=== PATIENT | male | born 1980 | race Caucasian/White ===

== ENCOUNTER 2023-09-22 16:35 | Emergency (ER) | payer OTHER, SELFPAY ==
--- NOTE | ~2023-09-22 | US_ITS ---
EXAMINATION: US VENOUS WITH DOPPLER UPPER EXTREMITY, RIGHT CLINICAL INFORMATION: Right arm axillary pain question DVT COMPARISON: None available. TECHNIQUE: Ultrasound of the upper extremity is performed using compression sonography and color and pulse Doppler flow with assessment of augmentation of flow. There is also imaging and Doppler assessment of the jugular and subclavian veins. Spectral analysis with color-flow imaging is performed. FINDINGS: Respiratory variation, normal compression, and augmented flow are noted throughout the upper extremity including the axillary, brachial, cubital, and radial and ulnar veins. Duplicated brachial system. There is normal flow in the internal jugular and subclavian veins. There is no visible deep or superficial thrombophlebitis. If the patient's symptoms progress, a followup ultrasound in 5 -7 days might be of value to exclude proximal propagation from a nonvisualized distal arm vein. US/US venous duplex UE RT IMPRESSION: No DVT demonstrated in the right upper extremity
--- NOTE | ~2023-09-22 | CT_ITS ---
EXAMINATION: CT CERVICAL SPINE WITHOUT CONTRAST CLINICAL INFORMATION: Pain. COMPARISON: None TECHNIQUE: Contiguous axial imaging was performed of the cervical spine without intravenous administration of contrast. Coronal and sagittal reformats were obtained at the acquisition workstation. This CT examination was performed using dose optimization techniques as appropriate, variously including the following: *Automated exposure control *Adjustment of mA and/or kV according to patient size (this includes techniques or standardized protocols for targeted exams where dose is matched to indication/reason for exam; i.e. extremities or head) *Use of iterative reconstruction technique DLP: 632 mGy-cm FINDINGS: The atlantooccipital and atlantoaxial articulations remain well aligned. Straightening of the normal cervical lordosis. Otherwise, there is anatomic alignment of the vertebral bodies and posterior elements. No evidence of acute fracture or subluxation. Moderate to severe intervertebral disc height loss at C5-C6 with associated endplate sclerosis and osteophytes leading to mild to moderate central spinal canal stenosis. Mild multilevel uncovertebral hypertrophy. There is no prevertebral soft tissue swelling. The thyroid gland and remaining cervical soft tissues are normal in appearance. The lung apices demonstrate no abnormalities. CT/CT cervical spine wo IV con IMPRESSION: 1. No acute cervical spine fracture or subluxation. 2. Moderate to severe intervertebral disc height loss at C5-C6 with associated osteophytes leading to mild to moderate central spinal canal stenosis.
[2023-09-22 16:48] VITALS: BP 132/87; PULSE 98; RESP 18; TEMP 36.8; O2SAT 95; BMI 38.7
--- NOTE | 2023-09-22 16:59 | ED.EXTPRO ---
HPI - Extremity Problem General Chief complaint: Extremity Injury, Upper Stated complaint: Pain right arm Time Seen by Provider: 09/22/23 18:29 Source: patient Mode of arrival: ambulatory Limitations: no limitations History of Present Illness HPI Narrative: 43 year old male presents for pain in the right aspect of his neck and axilla which shoots down into his arm. He states this pain began 4-5 days ago with no known injury. He states the pain is on and off. He states sometimes when he is lying down he does not feel the pain. He tries to move the pain worsens. He occasionally feels a numbness/burning pain radiating to his right upper arm. 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 He reports he has a family history of blood clots/DVTs Related Data Previous Rx's Medication Instructions Recorded cyclobenzaprine 10 mg tablet 10 mg PO TID PRN muscle spasm #15 09/22/23 tabs dexamethasone 4 mg tablet 4 mg PO BID #6 tabs 09/22/23 Allergies Allergy/AdvReac Type Severity Reaction Status Date / Time No Known Allergies Allergy Verified 09/22/23 16:48 [No Known Allergies*] Review of Systems Constitutional: Constitutional: Denies fever(s) and Denies headache(s) ENT: Denies headache(s) and Reports neck pain Cardiovascular: Cardiovascular: Denies chest pain and Denies dyspnea Respiratory: Respiratory: Denies dyspnea Gastrointestinal: Gastrointestinal: Denies abdominal pain Musculoskeletal: Musculoskeletal: Reports back pain, Reports neck pain, Reports numbness, Reports radiating pain into limb and Reports tingling Neurologic: Denies headache(s), Reports numbness and Reports tingling PMFSH Social History Social History Advance Directives: No Advance Directives Information Provided: No Physical Exam Vital Signs: Vital Signs: Last Vital Signs Temp 98.3 F 09/22/23 16:48 Pulse 98 09/22/23 16:48 Resp 18 09/22/23 16:48 BP 132/87 09/22/23 16:48 Pulse Ox 95 09/22/23 16:48 O2 Del Method Room Air 09/22/23 16:48 BMI result Body Mass Index 38.7 Const: General: healthy appearing, comfortable, no acute distress, alert and awake Nutritional Appearance: well nourished Orientation/consciousness: patient oriented x3 HEENT: Head: Yes normocephalic and Yes atraumatic Eyes: Eyelids: Yes eyelids normal Conjunctivae: conjunctivae normal Sclerae: sclerae normal Corneas: corneas normal Pupils: Equal, round and reactive pupils present EOM: EOMs intact bilaterally Neck: Neck: Yes full ROM Resp: Effort & Inspection: normal respiratory effort, able to speak in complete sentences and not labored Back/Spine/Pelvis: Other: Patient has tenderness to the right cervical paraspinous region as well as right trapezius muscle group. No palpable deformity. No C-spine tenderness. He has full range of motion of the right shoulder without deformity. 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 General: patient oriented x3 Cranial nerves: Yes Equal, round and reactive pupils present and Yes Bilaterally intact EOM present Cognition (Neuro): normal cognition Course Course Course Narrative: RME: 43 yold male presents to the ED for right axilla pain with right arm pain. patient also states posteirio neck pain. patient states no right arm sweling. Phyiscal exam positive for significant right axilla tenderness on palpation without any mass, redness, fluctulance, or crepitus. US dopper of right arm, cT of neck. Medications Administered Discontinued Medications Generic Name Dose Route Start Last Admin Trade Name Freq PRN Reason Stop Dose Admin Dexamethasone 4 mg 09/22/23 19:09 09/22/23 19:30 Dexamethasone 4 Mg Tablet PO 09/22/23 19:10 4 mg ONCE ONE Administration Medical Decision Making Medical Decision Making [facility] Narrative: 43-year-old male presents for evaluation of right-sided neck pain radiating to his right arm. His CT scan shows C5/C6 [id number] central canal stenosis which is likely contributing to cervical radiculopathy. Patient has been established with Neurosurgery in the past due to lumbar issues and was struck to follow-up with them. He was also instructed to follow-up with his PCP. Will treat symptomatically with dexamethasone and cyclobenzaprine. Differential Diagnosis Differential Diagnoses: The differential diagnosis associated with the presentation includes Cervical strain Cervical radiculopathy Right upper extremity DVT Muscle spasm Independent Interpretation I performed an independent interpretation of an: CT Scan (No obvious C-spine fracture) Radiology Impression Discussion of test interpretation with radiology: I have reviewed the radiologist's reading. (Mild to moderate central canal stenosis at the C5-C6 level.) Radiologist Impression: No evidence of DVT to the right upper extremity Discharge Plan Discharge Clinical Impression: Cervical radiculopathy, acute Patient Disposition: Home, Self-Care Instructions: Cervical Radiculopathy (ED) Additional Instructions: Your ultrasound showed no evidence of blood clots. Your CT scan showed narrowing of the disc space at C5/C6 This is likely causing a pinched nerve explaining your symptoms Take dexamethasone twice daily for the next 3 days Use ibuprofen/Tylenol for pain You may also use cyclobenzaprine as needed for muscle spasms This may make you sleepy, did not drink alcohol or drive after taking Follow-up with your primary doctor Prescriptions: New dexamethasone 4 mg tablet 4 mg PO BID Qty: 6 0RF cyclobenzaprine 10 mg tablet 10 mg PO TID PRN (Reason: muscle spasm) Qty: 15 0RF
--- OUTSIDE RECORDS SUMMARY | 2023-09-22 17:59 | XMS_ITS | Continuity of Care Document ---
Author Name Unknown Organization [facility] ter Address [address] [place] [id number] Care Team Providers [employer] Name Role Phone Micaela Pena MD Primary Care Physician Encounter [facility] NBR [id number] Date(s): 05/13/22 - 05/14/[address] [address]- Discharge Disposition: A-D/C Home Attending Physician: Jose Hough MD Admitting Physician: Jose Hough MD Referring Physician: Jose Hough MD Allergies, Adverse Reactions, Alerts No Known Allergies Medications acetaminophen-oxyCODONE 325 mg-5 mg oral tablet 2, tablet, By Mouth, Every 4 hours, PRN, # 30 tablet, Refills 0, Tot. Refills 0, Acute, Pain , Moderate, 05/20/22 16:15:00 EDT, 05/13/22 16:15:00 EDT, Route to Pharmacy Electronically, [facility], Partial fill upon patient request... Start Date: 05/13/22 Stop Date: 05/20/22 Status: Ordered Percocet-5/325 325 mg-5 mg oral tablet 2 tablet, Tablet, By Mouth, Every 4 hours, May take less, PRN for Pain , Moderate, Routine, 05/13/22 16:43:00 EDT Start Date: 05/13/22 Stop Date: 05/14/22 Status: Discontinued Problem List Condition Effective Dates Status Health Status Inform ant Obese class II(Confirmed) Active Procedures Procedure Date Related Diagnosis Body Site Status Laminotomy (hemilaminectomy) , with decompression of nerve root(s), including partial facetectomy, foraminotomy and/or excision of herniated intervertebral disc; 1 interspace, lumbar Completed Results Radiology Reports * Exam Date Time Procedure Performing Provider Status 05/13/22 5:32 PM Spine Single View Noel Myles; Auth ( Verified) Notes: (Spine Single View) Reason For Exam: RT Lumbar 4-5 Radiculitis RESULT: Spine Single View Spine Single View INDICATION/CLINICAL QUESTION: Reason: RT Lumbar 4-5 Radiculitis COMPARISON: None. FINDINGS: Single intraoperative lateral view of the lumbar spine with surgical instruments overlying the posterior elements at L4. Radiologist was not in attendance. Please see operative report for further details. IMPRESSION: See above. WSN: [id number] Ordering Physician: Jose Hough Dictated By: Bobby Loving MD Dictated Date/Time: 05/13/22 6:16 pm Reviewed By: Bobby Loving MD Signed By: Bobby Loving MD Signed Date/Time: 05/13/22 6:16 pm Transcribed By: RISA Transcribed Date/Time: 05/13/22 6:15 pm Vital Signs Most recent to oldest [Reference Range]: 1 2 3 Height 165 cm (05/14/22 8:33 AM) 165 cm (05/13/22 9:13 PM) 165 cm (05/13/22 2:27 PM) Weight 99.8 kg (05/13/22 2:27 PM) 99.8 kg (05/11/22 2:34 PM) Oxygen Saturation [94-100 %] 96 % (05/14/22 8:33 AM) 95 % (05/14/22 2:54 AM) 95 % (05/13/22 11:00 PM) Pulse Rate [55-90 bpm] 85 bpm (05/14/22 8:33 AM) 86 bpm (05/14/22 2:54 AM) 85 bpm (05/13/22 11:00 PM) Body Mass Index [18.5-24.99] 36.66 *>HHI* (05/13/22 2:27 PM) 36.66 *>HHI* (05/11/22 2:34 PM) Blood Pressure [90-138/55-84 mm Hg] 114/72mm Hg (05/14/22 8:33 AM) 104/73mm Hg (05/14/22 2:54 AM) 108/69mm Hg (05/13/22 11:00 PM) Respiratory Rate [16-30 br/min] 16 br/min (05/14/22 9:26 AM) 20 br/min (05/14/22 8:33 AM) 16 br/min (05/14/22 6:05 AM) Temperature [96.8-100.4 DegF] 98.2 DegF (05/14/22 8:33 AM) 98.2 DegF (05/14/22 2:54 AM) 98.2 DegF (05/13/22 11:00 PM) Liters per Minute 2 L/min (05/13/22 9:13 PM) 2 L/min (05/13/22 8:30 PM) 2 L/min (05/13/22 8:15 PM) Mode of Delivery (Oxygen) Room air (05/14/22 8:33 AM) Room air (05/14/22 2:54 AM) Nasal cannula (05/13/22 11:00 PM) Blood pressure sites Arm, left (05/14/22 8:33 AM) Arm, left (05/14/22 2:54 AM) Arm, left (05/13/22 11:00 PM) Temperature Route Oral (05/14/22 8:33 AM) Oral (05/14/22 2:54 AM) Oral (05/13/22 11:00 PM) Dry Weight 102.9 kg (05/13/22 2:27 PM) 99.8 kg (05/11/22 2:34 PM) Weight Obtained Via Patient/family state d (05/11/22 2:34 PM) Dry Weight Obtained Via Standing scale (05/13/22 2:27 PM) Patient/family stated (05/11/22 2:34 PM)
[2023-09-22] MEDS: dexAMETHasone 4 MG TABLET PO (19:30)
== END 2023-09-22 19:40 | disposition home or self-care (01) ==
PROVIDERS: Emergency Provider Student in an Organized Health Care Education/Training Program; PCP Pediatrics
DX: M54.12 Radiculopathy, cervical region (principal); M79.601 Pain in right arm
CPT/HCPCS: 72125; 93971; 99282; 99284; J8540

== ENCOUNTER 2023-09-27 11:57 | Outpatient (REF) | payer OTHER, SELFPAY ==
[2023-09-27 15:07] LABS: Appearance Urine Clear; Color Urine Yellow; Glucose Urine UA >=1000 mg/dL (Negative); Leukocyte Esterase Urine Negative (Negative); Nitrite Urine Negative (Negative); Specific Gravity - Urine >= 1.030 (1.005-1.025); UMIC TRIGGER UA YES; Urine Blood Negative (Negative); Urine Ketones Negative (Negative); Urine Protein Negative (Neg-Trace)
[2023-09-27 15:10] LABS: Bacteria Urine None Seen (None Seen); Hyaline Casts Urine 0-2 /LPF (0-2); RBC Urine 0-2 /HPF (0-2); Squamous Epithelial Cell Urine 0-2 /HPF (0-2); WBC Urine 0-5 /HPF (0-5)
[2023-09-27 15:10] LABS: Anion Gap 12 (12-20); Blood Urea Nitrogen 19 mg/dL (9-16); Calcium 9.2 mg/dL (8.4-10.2); Carbon Dioxide 27 mmol/L (22-29); Chloride 99 mmol/L (96-108); Estimated Glomerular Filt Rate > 60; Glucose Random 322 mg/dL (60-115); Sodium 134 mmol/L (135-145)
[2023-09-27 15:25] LABS: Estimated Average Glucose 169 mg/dL; Hemoglobin A1c % 7.5 % (<6.0)
== END 2023-09-27 11:58 | disposition home or self-care (01) ==
LOC: HO.CHCLDS 11:57
PROVIDERS: Visit Provider Pediatrics
DX: E11.69 Type 2 diabetes mellitus with other specified complication (principal); E66.9 Obesity, unspecified
CPT/HCPCS: 36415; 80048; 81001; 83036

== ENCOUNTER 2023-10-11 11:44 | Outpatient (AMB) | payer OTHER, SELFPAY ==
--- NOTE | 2023-10-11 11:47 | A.OFFVIS_ITS ---
Intake Vital Signs 10/11/23 11:53 Height 5 ft 5 in Weight 228 lb 2 oz BMI 38.0 BP 140/92 H Blood Pressure Location Lt brachial Position Sitting Pulse 102 H Pulse Source Pulse Oximeter Pulse Oximetry (%) 98 Oxygen Delivery Method Room Air Intake Visit Reasons: CERVICAL DISC DISORDER AT C5-C6 W/RADICULOPATHY/co Intake Note: Pain today 07/24 [employer] Worker Required: No Accompanied by: Self / Same As Patient Allergies No Known Allergies [No Known Allergies*] Allergy (Verified 10/11/23 11:49) HPI CERVICAL DISC DISORDER AT C5-C6 W/RADICULOPATHY/co HPI Details Patient is a 43-year-old male presents today with acute right-sided neck and right shoulder pain. [id number]. Denies any inciting events, trauma, injury, or falls. Patient was seen at our ER on 09/22/23 and was referred to us for further evaluation for cervical radiculopathy. Cervical spine CT scan showed moderate to severe intervertebral disc height loss at C5-C6 with associated osteophytes leading to mild to moderate central spinal canal stenosis. Neck pain is easily aggravated with all movements, worse with right rotation, bending, tilting with radiation to his right periscapular area and right axilla and down to his right arm with associated occasional numbness, burning and tingling. Pain has been constant and rated at 8-9/10 at its worst intensity and 6/10 least intensity. 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 Patient reports he was prescribed Flexeril and Decadron in ER. Flexeril causes him drowsiness, constipation and dry mouth. He was not able to fill Decadron. He denies previous physical therapy, chiropractic manipulation, massage, TENS unit, acupuncture or acupressure therapy, spine surgery or injections. Patient is interested to pursue formal course of physical therapy. He has been trying to increase his neck range of motions is gentle stretching exercises and heat therapy is minimal improvement. Denies any fever, weight loss, chills, malaise, headaches, dizziness, chest pain, shortness of breath, gait imbalances, bladder or bowel dysfunction or saddle anesthesia. Location Lower neck radiates down right shoulder and axilla Duration 1 month, no inciting events Characteristics of symptom or complaint Swelling, tightness, stabbing, pinching, numbness Aggravating or associated factors Movements, ROM, stress, cold weather Relieving factors Tilting to the left, staying still, Tylenol, Ibuprofen, Flexeril Treatment Stretching exercises, heat therapy Review of Systems Const All systems reviewed & are unremarkable except as noted in HPI and below Physical Exam Vital Signs: Last Vital Signs Pulse 102 H 10/11/23 11:53 BP 140/92 H 10/11/23 11:53 Pulse Ox 98 10/11/23 11:53 Oxygen Delivery Method Room Air 10/11/23 11:53 BMI result Body Mass Index 38.0 General: Appears afebrile. Alert and oriented. Mood and affect appropriate. Follows and participates in conversation appropriately. Respiratory effort is unlabored. No cough. Able to transition from sit to stand unassisted. Ambulates with bilaterally normal heel strike and toe off. Neck Other: Patient with decreased cervical ROM in all planes/especially with right lateral rotation and bending. Reports increased pain with cervical extension and flexion. Spurling compression test equivocal. Pain is unchanged by Spurling maneuver with retraction. Elvey's tension test positive on the right, with radiation of pain from neck to wrist. Lhermitte's test was negative. DTR intact, +2 and symmetrical. Patient demonstrated 5/5 motor strength of bilateral upper extremities, slightly decreased on the right. 2 + radial pulses. Significant tightness throughout right upper trapezius as well as TTP throughout bilateral upper trapezius muscles. No paravertebral tenderness over facet joints bilaterally. No clonus. TTP to anterior and posterior aspects of right shoulder. Shoulder abduction test is negative. Tinel's negative. Positive Phalen's test on the right. Neck: Yes no lymphadenopathy, Yes trachea midline, Yes supple, No anterior neck swelling, No torticollis, Yes no JVD and Yes prominent dorsocervical fat pad Chest Chest palpation & inspection: normal inspection of the chest, no localized rib tenderness, no tenderness and No rash Back/Spine/Pelvis Cervical Spine: cervical muscular tenderness, pain with cervical ROM, No Cervical spine scars present, cervical spasm (right), No Cervical spine tenderness and No step off deformity Thoracic/Lumbar Spine: thoracic and lumbar spine normal to inspection, thoraco- lumbar ROM normal, No thoracic spinal tenderness and No lumbar spinal tenderness Extrem General: Yes capillary refill normal and Yes no clubbing, cyanosis or edema Right upper extremity: shoulder/upper arm (Pain with internal/external rotations) Details: normal to inspection, tenderness Location: of the A-C joint and over the biceps tendon, axillary nerve sensory function normal and normal ROM; no swelling, no ecchymosis, no crepitus, no deformity and no unusual warmth Results Reviewed Results Reviewed: CT CERVICAL SPINE WITHOUT CONTRAST 09/22/23 FINDINGS: The atlantooccipital and atlantoaxial articulations remain well aligned. Straightening of the normal cervical lordosis. Otherwise, there is anatomic alignment of the vertebral bodies and posterior elements. No evidence of acute fracture or subluxation. Moderate to severe intervertebral disc height loss at C5-C6 with associated endplate sclerosis and osteophytes leading to mild to moderate central spinal canal stenosis. Mild multilevel uncovertebral hypertrophy. There is no prevertebral soft tissue swelling. The thyroid gland and remaining cervical soft tissues are normal in appearance. The lung apices demonstrate no abnormalities. IMPRESSION: 1. No acute cervical spine fracture or subluxation. 2. Moderate to severe intervertebral disc height loss at C5-C6 with associated osteophytes leading to mild to moderate central spinal canal stenosis. Assessment & Plan Assessment & Plan (1) Cervical spondylosis: Code(s): M47.812 - Spondylosis without myelopathy or radiculopathy, cervical region (2) Cervical radiculopathy: Code(s): M54.12 - Radiculopathy, cervical region (3) Numbness and tingling of right upper extremity: Code(s): R20.0 - Anesthesia of skin; R20.2 - Paresthesia of skin (4) Muscle spasms of neck: Code(s): M62.838 - Other muscle spasm (5) Right shoulder pain: Code(s): M25.511 - Pain in right shoulder Plan 1. Recommend formal physical therapy for neck and shoulder pain. Script provided today. Encouraged good posture, adequate hydration, activity modifications and avoiding heavy lifting or straining neck. 2. Discussed interventional treatments for axial and radicular neck pain and right shoulder pain. Will proceed with plain films of cervical-thoracic spine and shoulder xray and EMG studies prior to any interventional treatments. 3. Scripts provided for gabapentin and methocarbamol. Side effects and precautions were discussed with patient. Questions and concerns have been answered and patient agreed with the plan. Follow up for xray/EMG results and sooner as needed. Orders: Orders NE nerve conduction velocity Today M47.812 - Spondylosis without myelopathy or radiculopathy, cervical region, M54.12 - Radiculopathy, cervical region, R20.0 - Anesthesia of skin, R20.2 - Paresthesia of skin XR shoulder RT min 2V Today M25.511 - Pain in right shoulder XR thoracic spine 2V Today M54.12 - Radiculopathy, cervical region, R20.0 - Anesthesia of skin, R20.2 - Paresthesia of skin NE electromyogram (EMG) Today M47.812 - Spondylosis without myelopathy or radiculopathy, cervical region, M54.12 - Radiculopathy, cervical region, R20.0 - Anesthesia of skin, R20.2 - Paresthesia of skin PT Evaluation and Treatment Today M47.812 - Spondylosis without myelopathy or radiculopathy, cervical region, M54.12 - Radiculopathy, cervical region, M62.838 - Other muscle spasm, R20.0 - Anesthesia of skin, R20.2 - Paresthesia of skin XR cervical spine 3V Today M47.812 - Spondylosis without myelopathy or radiculopathy, cervical region, M54.12 - Radiculopathy, cervical region Medications: New gabapentin 300 mg PO BEDTIME 30 days 30 caps 0RF pain M54.12 - Radiculopathy, cervical region methocarbamol 750 mg PO Q8H PRN 90 tabs 0RF muscle spasm M47.812 - Spondylosis without myelopathy or radiculopathy, cervical region, M54.12 - Radiculopathy, cervical region, M62.838 - Other muscle spasm Discontinued dexamethasone Discontinued Reason: Doctor's Order 4 mg PO BID 6 tabs 0RF cyclobenzaprine Discontinued Reason: Patient no longer taking 10 mg PO TID PRN 15 tabs 0RF muscle spasm Coding Level of Care Code New Pt Level 4 (07627) Diagnoses Cervical spondylosis M47.812 Cervical radiculopathy M54.12 Numbness and tingling of right upper extremity R20.0; R20.2 Muscle spasms of neck M62.838 Right shoulder pain M25.511
[2023-10-11 11:53] VITALS: BP 140/92; PULSE 102; O2SAT 98; BMI 38.0
== END 2023-10-11 12:11 | disposition home or self-care (01) ==
PROVIDERS: PCP Pediatrics; Referring Provider Pediatrics; Visit Provider Nurse Practitioner Family
DX: M47.812 Spondylosis without myelopathy or radiculopathy, cervical region (principal); M54.12 Radiculopathy, cervical region; R20.0 Anesthesia of skin; R20.2 Paresthesia of skin; M62.838 Other muscle spasm; M25.511 Pain in right shoulder
CPT/HCPCS: 99204

== ENCOUNTER → 2023-10-11 11:44 | Outpatient (BNVA) | payer OTHER, SELFPAY | PROVIDERS: PCP Pediatrics; Referring Provider Pediatrics; Visit Provider Nurse Practitioner Family | DX: M47.812 Spondylosis without myelopathy or radiculopathy, cervical region (principal); M54.12 Radiculopathy, cervical region; M62.838 Other muscle spasm; M25.511 Pain in right shoulder; R20.0 Anesthesia of skin; R20.2 Paresthesia of skin | CPT/HCPCS: 99202 ==

== ENCOUNTER 2023-10-12 16:22 | Outpatient (REF) | payer OTHER, SELFPAY ==
--- NOTE | ~2023-10-12 | XR_ITS ---
EXAMINATION: XR SHOULDER, RIGHT CLINICAL INFORMATION: Pain in right shoulder COMPARISON: None available. TECHNIQUE: AP external rotation, Grashey, scapular Y, and axillary views of the right shoulder. FINDINGS: The bones and soft tissues are normal. No fracture. Glenohumeral and acromioclavicular alignment is anatomic with normal joint space. No abnormal soft tissue calcifications. XR/XR shoulder RT min 2V IMPRESSION: Normal right shoulder.
--- NOTE | ~2023-10-12 | XR_ITS ---
EXAMINATION: XR THORACOLUMBAR SPINE CLINICAL INFORMATION: Radiculopathy COMPARISON: None available. TECHNIQUE: 2 views of thoracic spine FINDINGS: The vertebral alignment is normal. No intrinsic bony abnormality. The disc heights and neural foramina are well maintained. The endplates and posterior elements are normal. No fracture or subluxation. The surrounding prevertebral soft tissues are unremarkable. XR/XR thoracic spine 2V IMPRESSION: No compression fractures or subluxations are identified. The disc spaces are preserved. No endplate changes are seen. The prevertebral soft tissues are normal. The foramina are patent.
--- NOTE | ~2023-10-12 | XR_ITS ---
EXAMINATION: XR CERVICAL SPINE CLINICAL INFORMATION: Neck pain COMPARISON: CT scan from 09/22/2020 TECHNIQUE: 3 views of the cervical spine were obtained. FINDINGS: There is straightening of cervical lordosis with marginal spurring and narrowing at the level of C5-C6 and narrowing of C6-C7 intervertebral disc spaces. Pedicles are preserved. Soft tissues are unremarkable. XR/XR cervical spine 3V IMPRESSION: Degenerative changes as described
== END 2023-10-12 16:23 | disposition home or self-care (01) ==
LOC: HO.XRAY 16:22
PROVIDERS: PCP Pediatrics; Visit Provider Nurse Practitioner Family
DX: M54.12 Radiculopathy, cervical region (principal); M47.812 Spondylosis without myelopathy or radiculopathy, cervical region; M25.511 Pain in right shoulder; R20.0 Anesthesia of skin; R20.2 Paresthesia of skin
CPT/HCPCS: 72040; 72070; 73030

== ENCOUNTER 2023-11-25 10:51 | Outpatient (REF) | payer OTHER, SELFPAY ==
--- NOTE | 2023-11-25 10:53 | EMG_ITS ---
Chief complaint: New onset right neck and upper arm pain, since September 2023. And numbness on same distribution. Denies numbness in fingers. Reason for referral: Evaluate for radiculopathy Referred by: Gracie Dewitt NP Procedure done: Right upper extremity NCS/EMG Precautions and/or limitations: None The limb temperature was monitored continuously and remained between 32-36 degrees C during the performance of the NCS. Nerve Conduction Studies Anti Sensory Summary Table ?Stim Site NR Onset (ms) Norm Onset (ms) Peak (ms) Norm Peak (ms) O-P Amp (?V) Norm O-P Amp Site1 Site2 Delta-0 (ms) Dist (cm) Nick (m/s) Norm Nick (m/s) Right Median Anti Sensory (2nd Digit) Wrist ? 3.3 4.0 <3.6 31.0 >10 Wrist 2nd Digit 3.3 14.0 42 Right Radial Anti Sensory (Thumb) Forearm ? 1.4 1.9 <3.1 17.9 Forearm Thumb 1.4 0.0 Right Ulnar Anti Sensory (5th Digit) Wrist ? 2.1 2.9 <3.7 15.9 >15.0 Wrist 5th Digit 2.1 14.0 67 Motor Summary Table ?Stim Site NR Onset (ms) Norm Onset (ms) O-P Amp (mV) Norm O-P Amp iAmp (mV) Amp (1st) (%) Site1 Site2 Delta-0 (ms) Dist (cm) Nick (m/s) Norm Nick (m/s) Right Median Motor (Abd Poll Brev) Wrist ? 4.5 <3.9 6.4 >4.5 8.1 100.0 Elbow Wrist 4.3 19.0 44 >45 Elbow ? 8.8 7.3 8.9 114.1 Right Ulnar Motor (Abd Dig Minimi) Wrist ? 2.7 <3.0 11.1 >5 13.2 100.0 B Elbow Wrist 3.3 18.5 56 >45 B Elbow ? 6.0 9.9 12.7 89.2 A Elbow B Elbow 1.9 10.0 53 >45 A Elbow ? 7.9 9.2 12.0 82.9 EMG ?Side Muscle Nerve Root Ins Act Fibs Psw Amp Dur Poly Recrt Int Pat Comment Right 1stDorInt Ulnar C8-T1 Nml Nml Nml Nml Nml 0 Nml Complete Right FlexCarRad Median C6-7 Incr 1+ 1+ Nml Nml 0 Nml Complete Right Biceps Musculocut C5-6 Nml Nml Nml Nml Nml 0 Nml Complete Right Triceps Radial C6-7-8 Nml Nml Nml Nml Nml 0 Nml Complete Right Deltoid Axillary C5-6 Nml Nml Nml Nml Nml 0 Nml Complete Right Supraspinatus SupraScap C5-6 Incr 1+ 1+ Nml Nml 0 Nml Complete Paraspinal EMG ?Side Muscle Nerve Root Ins Act Fibs Psw Comment Right Cervical Upper Rami Nml Nml Nml Right Cervical Mid Rami Nml Nml Nml Right Cervical Lower Rami Nml Nml Nml FINDINGS: Right median motor nerve showed prolonged distal latency, normal amplitude and slow conduction velocity. Right median sensory nerve showed prolonged peak latency. All other nerves tested were within normal. Concentric needle EMG was performed in selected muscles of the right upper extremity and cervical paraspinal. Study revealed Signs of electric abnormalities as shown in the table below. Right supraspinatus and FCR muscles showed increased insertional activity, PSWs and fibrillations. IMPRESSION: 1. This is an abnormal study. 2. There is electrodiagnostic findings suggestive for right C5-6 acute radiculopathy. 3. Incidentally, there is electrodiagnostic evidence for right median neuropathy at the wrist, consistent with Carpal Tunnel Syndrome. 4.. There is no electrodiagnostic evidence for ulnar neuropathy, or brachial plexopathy. Thank you for your kind referral. Cara Altman MD, MIK Board Certified, [place] Board of Physical Medicine and Rehabilitation (ABPMR) Board Certified, [place] Board of Electrodiagnostic Medicine (ABEM) CODIN 75401 x 2 MTDD
== END 2023-11-25 10:52 | disposition home or self-care (01) ==
LOC: HO.NEURO 10:51
PROVIDERS: PCP Pediatrics; Visit Provider Nurse Practitioner Family
DX: R20.0 Anesthesia of skin (principal); R20.2 Paresthesia of skin; M54.12 Radiculopathy, cervical region; M47.812 Spondylosis without myelopathy or radiculopathy, cervical region
CPT/HCPCS: 95886; 95909

== ENCOUNTER → 2023-11-25 10:53 | Outpatient (BNV) | payer OTHER, SELFPAY | PROVIDERS: PCP Pediatrics; Visit Provider Physical Medicine & Rehabilitation | DX: G56.01 Carpal tunnel syndrome, right upper limb (principal); M50.122 Cervical disc disorder at C5-C6 level with radiculopathy | CPT/HCPCS: 95886; 95909 ==

== ENCOUNTER 2023-12-22 11:00 | Outpatient (RCR) | payer OTHER, SELFPAY ==
--- NOTE | 2023-10-31 11:55 | MHC.PT.EP ---
[facility] [place] Office [place] Office [place] Office [address] Dolores Pal [address] [phone] F: [phone] F: [phone] F: [phone] F: [phone] Physical Therapy Plan of Care Date of Evaluation: 10/31/23 Date of Surgery: N/A Diagnosis: cervical spondylosis (RL) Assessment: pt is a 43 y/o male presenting to physical therapy w/ referring diagnosis of cervical radiculopathy; cervical spondylosis. Impairments include pain, decreased range of motion, decreased strength, impaired functional mobility, impaired postural awareness, and altered ambulation mechanics. pt is a good candidate for skilled PT due to age, potential remediation of impairments, typical disease/condition progression and prognosis, comorbidities, and motivation. pt would benefit from skilled PT intervention to provide a tailored strengthening and stretching exercise program, functional training, gait training, postural re-training, neuromuscular re-education, modalities as needed for pain, equipment safety demonstration. Frequency and Duration: The patient will be seen 2x/wk for 4 wks Short Term Goals: pt will be I w/ HEP to promote self-management of condition. pt will demo proper sitting posture w/ lumbar roll to promote neutral spine w/ seated ADLs. Trim Sawyer Goals: pt will report a statistically significant improvement in self-reported outcome measure, NDI, to promote return to PLOF. pt will improve B shoulder flexion and abduction AROM by at least 15 degrees to promote ease w/ overhead reaching. Treatment Plan: Modalities to reduce pain, spasms and effusion. Manual therapy to restore motion and function. Therapeutic exercise to improve strength and flexibility. Neuromuscular re-education for posture and balance. Therapeutic activities to return to functional activities of daily living. Electronically signed by: Sara Denton PT, DPT Please sign and return to therapist. Thank you for your referral.
--- NOTE | 2023-12-29 10:46 | MHC.PT.DC ---
[facility] [place] Office [place] Office [place] Office [address] Dolores Pal [address] [phone] F: [phone] F: [phone] F: [phone] F: [phone] Physical Therapy Discharge Report Diagnosis: cervical spondylosis (RL) Date of Surgery: N/A Date of Evaluation: 10/31/23 Date of Discharge: 12/29/23 Treatments to Date: 8 Cancellations to Date: 3 No Shows to Date: 1 Discharge Status: Improved Function Independent with HEP Recommend MD Follow-up Discharge Summary: The patient overall has been reporting a reduction in radicular symptoms and overall less intense neck pain. His attendance varied due to work and family schedules. He is independent with his home exercise program including postural stability and strengthening exercises. At this time he is discharged to his home exercise program with recommendation to follow-up with pain management to discuss any further treatment options. Electronically signed by: Sara Denton PT, DPT Please sign and return to therapist. Thank you for your referral.
== END 2023-12-29 10:46 | disposition home or self-care (01) ==
LOC: HO.PT 11:00
PROVIDERS: PCP Pediatrics; Visit Provider Nurse Practitioner Family
DX: M62.838 Other muscle spasm (principal); R20.0 Anesthesia of skin; R20.2 Paresthesia of skin
CPT/HCPCS: 97012; 97110; 97112; 97140; 97162

== ENCOUNTER 2024-01-09 11:06 | Outpatient (AMB) | payer OTHER, SELFPAY ==
--- NOTE | 2024-01-09 11:07 | MHC.OFFVIS ---
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 EMG done on 11/25/23. States symptoms started a couple months ago and has worsen. Patient states its worse through out the day. Patient has tried and failed PT with mild relief. 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 The patient is currently follow by Pain Management, who referred the patient to our office status post an EMG which showed right median neuropathy at the wrist. He was last seen by Pain Management on 10/11/2023 for neck pain. Per provider note, cervical spine CT scan showed moderate to severe intervertebral disc height loss at C5-C6 with associated osteophytes leading to mild to moderate central spinal canal stenosis. He was referred to Physical Therapy. He was encouraged good posture, adequate hydration, activity modifications and avoiding heavy lifting or straining neck. Scripts provided for gabapentin and methocarbamol. While in the office today the patient reports his pain began a few months ago and reports this has increased. He states it increases through out the day. He confirms trying and failing physical therapy with mild relief. He states the pain is mostly located in this next and this radiates down to his shoulder. 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 No ecchymosis, erythema, or edema. Full wrist ROM in all planes. Radial pulse intact. Capillary refill is brisk. Assessment & Plan Assessment & Plan (1) Cervical radiculopathy: Code(s): M54.12 - Radiculopathy, cervical region (2) Cervical spondylosis: Code(s): M47.812 - Spondylosis without myelopathy or radiculopathy, cervical region Plan Mr. Birmingham is a 43-year-old right hand dominant male who presents in the office today for an evaluation of right upper extremity pain. The patient is currently follow by Pain Management, who referred the patient to our office status post an EMG which showed right median neuropathy at the wrist. He was last seen by Pain Management on 10/11/2023 for neck pain. Per provider note cervical spine CT scan showed moderate to severe intervertebral disc height loss at C5-C6 with associated osteophytes leading to mild to moderate central spinal canal stenosis. He was referred to Physical Therapy. He was encouraged good posture, adequate hydration, activity modifications and avoiding heavy lifting or straining neck. Scripts provided for gabapentin and methocarbamol. While in the office today the patient reports his pain began a few months ago and reports this has increased. He states it increases through out the day. He confirms trying and failing physical therapy with mild relief. He states the pain is mostly located in this next and this radiates down to his shoulder. 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 The patient?s main complaint is neck pain that radiates down the entire right upper extremity. He has been seen by Pain Management, who ordered the EMG study and was diagnosed with cervical radiculopathy. He did have a CT scan that showed moderate to severe disc height loss at C5-C6 with osteophytes and mild to moderate spinal stenosis. I discussed with the patient if he would like to be seen with Pain Management to discuss further intervention or if he wishes to proceed with surgical intervention. At this time the patient would like to be seen by Spine Surgery to see if he is a candidate for surgery. I have sent a message to Pain Management to let them know what the patient wishes to do and should he need any additional imaging prior to be seen by spine, pain management can obtained this for the patient. Follow up will be PRN, or sooner if needed. EMG of the right upper extremity, obtained on 11/25/2023, revealed: 1. This is an abnormal study. 2. There is electrodiagnostic findings suggestive for right C5-6 acute radiculopathy. 3. Incidentally, there is electrodiagnostic evidence for right median neuropathy at the wrist, consistent with Carpal Tunnel Syndrome. 4.. There is no electrodiagnostic evidence for ulnar neuropathy, or brachial plexopathy. Orders: Referrals Neuro Spine Referral M47.812 - Spondylosis without myelopathy or radiculopathy, cervical region, M54.12 - Radiculopathy, cervical region, R20.0 - Anesthesia of skin, R20.2 - Paresthesia of skin Patient Instructions: Scribed by Zo Ovalle medical assistant instructor, for Clementine Scanlon PA-C on 01/09/2024 at 11:10 am, EST. Coding Level of Care Code New Pt Level 4 (90884) Diagnoses Cervical radiculopathy M54.12 Cervical spondylosis M47.812
== END 2024-01-09 11:23 | disposition home or self-care (01) ==
PROVIDERS: PCP Pediatrics; Visit Provider Physician Assistant
DX: M54.12 Radiculopathy, cervical region (principal); M47.812 Spondylosis without myelopathy or radiculopathy, cervical region
CPT/HCPCS: 99203

== ENCOUNTER → 2024-01-09 11:06 | Outpatient (BNVA) | payer OTHER, SELFPAY | PROVIDERS: PCP Pediatrics; Visit Provider Physician Assistant | DX: M54.12 Radiculopathy, cervical region (principal); M47.812 Spondylosis without myelopathy or radiculopathy, cervical region | CPT/HCPCS: 99202 ==

== ENCOUNTER 2024-01-12 10:33 | Outpatient (AMB) | payer OTHER, SELFPAY ==
--- NOTE | 2024-01-12 10:46 | A.OFFVIS_ITS ---
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 Patient reports minimal function improvement but increased neck pain. Patient reports he continues with home exercise program including postural stability and strengthening exercises. His main concern remains axial and radiculr neck pain that radiates to his right shoulder and right upper arm with numbness and tingling at his elbow and his wrist on the right. His been taking gabapentin, methocarbamol and Tylenol which provided him partial symptom relief. Recent EMG/NVC studies showed right C5-6 acute radiculopathy and right median neuropathy at the wrist, consistent with Carpal Tunnel Syndrome. Patient was seen in by orthopedic provider and was referred back to us for neck pain treatments and referred to Neurosurgeon for evaluation. His most recent A1C was 7.5. Patient is interested to undergo therapeutic MICHEAL for his radicular symptoms. Patient denies any recent cough, cold, infection, fever, malaise, headaches, dizziness, chest pain, shortness of breath, gait imbalances, bladder or bowel dysfunction or saddle anesthesia, any significant changes in her medical history, medications or recent hospitalizations. Reports intermittent right hand weakness with activities and increased right hand and wrist pain at the end of the day. Pain continues to affect his daily activities, functioning, sleep, social interactions and quality of life. Patient reports good mental and social support from his family and close friends at this time. PRIOR: Oswestry: NECK Pain and Disability Score-19 (moderate) Pertinent positives: The pain is fairly severe at the moment. I need some help, but manage most of my personal care. I can lift heavy weights, but it gives extra pain. I can read as much as I want to with slight pain in my neck. I have moderate headaches which come frequently. I have a fair degree of difficulty in concentrating when I want to. I can only do my usual work, but no more. I can drive my car as long as I want with slight pain in my neck. My sleep is moderately disturbed (2-3 hours sleepless). I am able to engage in all of my recreational activities with some pain in my neck. PRIOR: Patient is a 43-year-old male presents today with acute right-sided neck and right shoulder pain. [id number]. Denies any inciting events, trauma, injury, or falls. Patient was seen at our ER on 09/22/23 and was referred to us for further evaluation for cervical radiculopathy. Cervical spine CT scan showed moderate to severe intervertebral disc height loss at C5-C6 with associated osteophytes leading to mild to moderate central spinal canal stenosis. Neck pain is easily aggravated with all movements, worse with right rotation, bending, tilting with radiation to his right periscapular area and right axilla and down to his right arm with associated occasional numbness, burning and tingling. Pain has been constant and rated at 8-9/10 at its worst intensity and 6/10 least intensity. 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 Patient reports he was prescribed Flexeril and Decadron in ER. Flexeril causes him drowsiness, constipation and dry mouth. He was not able to fill Decadron. He denies previous physical therapy, chiropractic manipulation, massage, TENS unit, acupuncture or acupressure therapy, spine surgery or injections. Patient is interested to pursue formal course of physical therapy. He has been trying to increase his neck range of motions is gentle stretching exercises and heat therapy is minimal improvement. Denies any fever, weight loss, chills, malaise, headaches, dizziness, chest pain, shortness of breath, gait imbalances, bladder or bowel dysfunction or saddle anesthesia. 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 Alert and oriented. Mood and affect appropriate. Follows and participates in conversation appropriately. Respiratory effort is unlabored. No cough. Able to transition from sit to stand unassisted. Ambulates with bilaterally normal heel strike and toe off. Neck Other: Patient with decreased cervical ROM with right lateral rotation and bending. Reports increased pain with cervical extension and flexion on the right. Spurling compression test equivocal. Pain is unchanged by Spurling maneuver with retraction. Elvey's tension test positive on the right, with radiation of pain from neck to shoulder and upper arm. Reports tingling at right elbow and thumb and fingers. Lhermitte's test was negative. DTR intact, +2 and symmetrical. Patient demonstrated 5/5 motor strength of bilateral upper extremities, slightly decreased on the right with manufacturing maintenance mechanic/grasp. 2 + radial pulses. Significant tightness throughout right upper trapezius as well as TTP throughout bilateral upper trapezius muscles. No paravertebral tenderness over facet joints bilaterally. No clonus. TTP to anterior and posterior aspects of right shoulder. Shoulder abduction test is negative. Tinel's negative. Positive Phalen's test on the right. Neck: Yes no lymphadenopathy, Yes trachea midline, Yes supple, No anterior neck swelling, No torticollis, Yes no JVD and Yes prominent dorsocervical fat pad Chest Chest palpation & inspection: normal inspection of the chest, no localized rib tenderness, no tenderness and No rash Back/Spine/Pelvis Cervical Spine: cervical muscular tenderness, pain with cervical ROM, No Cervical spine scars present, No Cervical spine tenderness and step off deformity Thoracic/Lumbar Spine: thoracic and lumbar spine normal to inspection, thoraco- lumbar ROM normal, No thoracic spinal tenderness and No lumbar spinal tenderness Extrem General: Yes capillary refill normal and Yes no clubbing, cyanosis or edema Right upper extremity: shoulder/upper arm (Pain with internal/external rotations) Details: normal to inspection, tenderness Location: of the A-C joint and over the biceps tendon, axillary nerve sensory function normal and normal ROM; no swelling, no ecchymosis, no crepitus, no deformity and no unusual warmth Results Reviewed Results Reviewed: CT CERVICAL SPINE WITHOUT CONTRAST 09/22/23 FINDINGS: The atlantooccipital and atlantoaxial articulations remain well aligned. Straightening of the normal cervical lordosis. Otherwise, there is anatomic alignment of the vertebral bodies and posterior elements. No evidence of acute fracture or subluxation. Moderate to severe intervertebral disc height loss at C5-C6 with associated endplate sclerosis and osteophytes leading to mild to moderate central spinal canal stenosis. Mild multilevel uncovertebral hypertrophy. There is no prevertebral soft tissue swelling. The thyroid gland and remaining cervical soft tissues are normal in appearance. The lung apices demonstrate no abnormalities. IMPRESSION: 1. No acute cervical spine fracture or subluxation. 2. Moderate to severe intervertebral disc height loss at C5-C6 with associated osteophytes leading to mild to moderate central spinal canal stenosis. NE electromyogram (EMG); NE nerve conduction velocity 11/25/23 FINDINGS: Right median motor nerve showed prolonged distal latency, normal amplitude and slow conduction velocity. Right median sensory nerve showed prolonged peak latency. All other nerves tested were within normal. Concentric needle EMG was performed in selected muscles of the right upper extremity and cervical paraspinal. Study revealed Signs of electric abnormalities as shown in the table below. Right supraspinatus and FCR muscles showed increased insertional activity, PSWs and fibrillations. IMPRESSION: 1. This is an abnormal study. 2. There is electrodiagnostic findings suggestive for right C5-6 acute radic ulopathy. 3. Incidentally, there is electrodiagnostic evidence for right median neuropathy at the wrist, consistent with Carpal Tunnel Syndrome. 4.. There is no electrodiagnostic evidence for ulnar neuropathy, or brachial plexopathy. Assessment & Plan Assessment & Plan (1) Cervical radiculopathy: Code(s): M54.12 - Radiculopathy, cervical region (2) Numbness and tingling of right upper extremity: Code(s): R20.0 - Anesthesia of skin; R20.2 - Paresthesia of skin (3) Cervical spondylosis: Code(s): M47.812 - Spondylosis without myelopathy or radiculopathy, cervical region (4) Carpal tunnel syndrome of right wrist: Code(s): G56.01 - Carpal tunnel syndrome, right upper limb Plan Hand surgery referral to Dr. High to address carpal tunnel syndrome confirmed with EMG study. Script for provided for wrist brace. MRI of the cervical spine to assess for neural integrity and compression and follow up on previous CT scan and EMG findings. Considering C5-C6 right parasagittal MICHEAL. Expectations, risks and benefits were reviewed. Patient also has pending Neurosurgical Evaluation in February with Dr. Zhang. Refill provided for gabapentin. Continue methocarbamol as needed. Continue home exercise program, adequate hydration, weight optimization, activity modifications and good posture. Patient will return to the clinic to discuss results of the MRI findings when it is done and consider interventional therapy as indicated. All questions and concerns have been answered and patient agreed with the plan. Follow-up for MRI results and sooner as needed. Orders: Orders MR cervical spine wo con Today M47.812 - Spondylosis without myelopathy or radiculopathy, cervical region, M54.12 - Radiculopathy, cervical region, R20.0 - Anesthesia of skin, R20.2 - Paresthesia of skin Referrals Hand Surgery Referral G56.01 - Carpal tunnel syndrome, right upper limb Medications: New arm brace (Wrist Brace) As directed 1 ea 0RF pain G56.01 - Carpal tunnel syndrome, right upper limb arm brace (Wrist Brace) As directed 1 ea 0RF pain G56.01 - Carpal tunnel syndrome, right upper limb Refilled gabapentin 300 mg PO BEDTIME 30 caps 1RF for pain M54.12 - Radiculopathy, cervical region Coding Level of Care Code Est Pt Level 4 (95132) Diagnoses Cervical radiculopathy M54.12 Numbness and tingling of right upper extremity R20.0; R20.2 Cervical spondylosis M47.812 Carpal tunnel syndrome of right wrist G56.01
[2024-01-12 10:57] VITALS: BP 146/78; PULSE 106; O2SAT 98; BMI 37.7
== END 2024-01-12 11:13 | disposition home or self-care (01) ==
PROVIDERS: PCP Pediatrics; Visit Provider Nurse Practitioner Family
DX: M54.12 Radiculopathy, cervical region (principal); R20.0 Anesthesia of skin; R20.2 Paresthesia of skin; M47.812 Spondylosis without myelopathy or radiculopathy, cervical region; G56.01 Carpal tunnel syndrome, right upper limb
CPT/HCPCS: 99214

== ENCOUNTER → 2024-01-12 10:33 | Outpatient (BNVA) | payer OTHER, SELFPAY | PROVIDERS: PCP Pediatrics; Visit Provider Nurse Practitioner Family | DX: M54.12 Radiculopathy, cervical region (principal); M47.812 Spondylosis without myelopathy or radiculopathy, cervical region; G56.01 Carpal tunnel syndrome, right upper limb; R20.0 Anesthesia of skin; R20.2 Paresthesia of skin | CPT/HCPCS: 99212 ==

== ENCOUNTER 2024-02-15 10:54 | Outpatient (AMB) | payer OTHER, SELFPAY ==
--- NOTE | 2024-02-15 11:06 | A.OFFVIS_ITS ---
Intake Intake Visit Reasons: newprob- CTS RT hand Intake Note: Ranjeet 43 yr old male presents to the office today for a new problem visit for his right hand carpal tunnel syndrome. States symptoms are worse at night time.Pt states he gets numbness and tingling in his fingertips. EMG done. Allergies No Known Allergies [No Known Allergies*] Allergy (Verified 02/15/24 11:06) HPI newprob- CTS RT hand HPI Details Ranjeet is a 43 year old right hand dominant man who presents for a NCS review of his right hand numbness. He complains of numbness in his right thumb, index, and middle fingers. Symptoms intermittent, but daily, worse at night. He also has cervical radiculopathy and follows with Pain management for this. He is scheduled for a C-spine MRI and a referral to the Spine center. 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 Review of Systems Const All systems reviewed & are unremarkable except as noted in HPI and below Physical Exam Const General: cooperative, healthy appearing and no acute distress Orientation/consciousness: patient oriented x3 HEENT Head: Yes normocephalic and Yes atraumatic Eyes EOM: EOMs intact bilaterally Resp Effort & Inspection: normal respiratory effort and able to speak in complete sentences Cardio Jugular venous distension: no JVD Skin General skin exam: turgor normal Rashes: no rashes Neuro General: patient oriented x3 Extrem Other: Evaluation of Right Upper Extremity: The patient is alert, oriented, and in no acute distress Neuro: Median, Ulnar, Radial nerves motor and sensory intact and sensation is normal to the tips of all digits No thenar or intrinsic wasting Good APB muscle belly firing and good finger cross Vascular: Cap refill brisk ROM: He can make a fist and extend all his digits No locking or catching Skin: No lacerations or abrasions. General: No Ecchymosis. No Erythema or evidence of infection. Radiographs: Right-side only IMPRESSION: 1. This is an abnormal study. 2. There is electrodiagnostic findings suggestive for right C5-6 acute radiculopathy. 3. Incidentally, there is electrodiagnostic evidence for right median neuropathy at the wrist, consistent with Carpal Tunnel Syndrome. 4.. There is no electrodiagnostic evidence for ulnar neuropathy, or brachial plexopathy. Cara Altman MD, MIK 11/25/23 Psych Appearance: grossly normal Affect: normal affect Attitude: cooperative Assessment & Plan Assessment & Plan (1) Carpal tunnel syndrome of right wrist: Code(s): G56.01 - Carpal tunnel syndrome, right upper limb (2) Cervical radiculopathy: Code(s): M54.12 - Radiculopathy, cervical region Plan Assessment & Plan: 1. Right carpal tunnel syndrome, Symptoms intermittent, but daily, worse at night Evidence of double-crush syndrome on NCS 2. Right-sided cervical radiculopathy He follows with Pain management for this, and has an MRI scheduled for 02/22/24. He has an appointment with the spine center on 02/29/24 I educated him about this condition I discussed operative and non-operative treatment options The patient would like to proceed with surgery I explained that given his cervical radiculopathy, having this surgery sooner before he meets with the spine center to discuss possible treatment options The risks and benefits of operative treatment were discussed with the patient and the patient wishes to proceed with surgery. These risks include, but are not limited to risk of damage to blood vessels, nerves, tendons, infection, recurrence, incomplete relief of preoperative symptoms, persistent pain, po ssible need for further surgery and the risks associated with regional blocks and anesthesia. The plan is to take the patient to the operating room sometime in the next few weeks for the following procedures: 1. Right carpal tunnel release, under local All of the preoperative paperwork including the consent was reviewed today. All the patient's questions were answered. The patient understands that they will be contacted by our massage therapy instructor soon to schedule this procedure. This should be scheduled for sometime this month He denies blood thinners, asthma, heart, lung, kidney issues He is a Diabetic, his most recent HgA1c was 7.5% on 09/27/23 They will need an updated HgA1c that is <8.1% in order to proceed with surgery, and they expressed understanding Scribed for Jillian High MD by Vik Cruz, manager medical, on 02/15/24 at 11:25 AM, EST. Coding Level of Care Code New Pt Level 4 (85232) Diagnoses Carpal tunnel syndrome of right wrist G56.01 Cervical radiculopathy M54.12
== END 2024-02-15 11:37 | disposition home or self-care (01) ==
PROVIDERS: PCP Pediatrics; Visit Provider Orthopaedic Surgery
DX: G56.01 Carpal tunnel syndrome, right upper limb (principal); M54.12 Radiculopathy, cervical region
CPT/HCPCS: 99214

== ENCOUNTER → 2024-02-15 10:54 | Outpatient (BNVA) | payer OTHER, SELFPAY | PROVIDERS: PCP Pediatrics; Visit Provider Orthopaedic Surgery | DX: G56.01 Carpal tunnel syndrome, right upper limb (principal); M54.12 Radiculopathy, cervical region | CPT/HCPCS: 99212 ==

== ENCOUNTER 2024-02-22 10:41 | Outpatient (REF) | payer OTHER, SELFPAY ==
--- NOTE | ~2024-02-22 | MR_ITS ---
EXAMINATION: MR CERVICAL SPINE WITHOUT CONTRAST CLINICAL INFORMATION: Cervical radiculopathy. COMPARISON: CT cervical spine from 09/22/2023. TECHNIQUE: MRI of the cervical spine was obtained using routine sequences without contrast. FINDINGS: Straightening of the normal cervical lordosis. Moderate degenerative retrolisthesis of C5 on C6. Normal, homogeneous marrow signal throughout. The vertebral body heights are maintained. The intervertebral discs are of normal height and signal. The spinal cord is normal in appearance. Advanced degenerative disc disease at C5-C6. Mild degenerative disc disease from C3-C5 and at C6-C7. Associated mixed Modic type discogenic and plate changes including minimal Modic type I discogenic edema at C5-C6. No additional suspicious marrow edema. The vertebral body heights are well-maintained. Normal appearance of the cervicomedullary junction and visualized posterior fossa. SPINAL LEVELS: C2-C3: Normal annular contour. There is no uncovertebral joint arthropathy. There is mild bilateral facet joint arthropathy. There is no neural foraminal stenosis. There is no spinal canal stenosis. C3-C4: Normal annular contour. There is mild left and no right uncovertebral joint arthropathy. There is mild left and no right facet joint arthropathy. There is mild left and no right neural foraminal stenosis. There is no spinal canal stenosis. C4-C5: Minimal disc-osteophyte complex. There is mild left and no right uncovertebral joint arthropathy. There is moderate bilateral facet joint arthropathy. There is mild left and no right neural foraminal stenosis. There is no spinal canal stenosis. C5-C6: Moderate disc-osteophyte complex. There is severe right and moderate left uncovertebral joint arthropathy. There is mild bilateral facet joint arthropathy. There is moderate to severe right and moderate left neural foraminal stenosis. There is mild to moderate spinal canal stenosis. C6-C7: Mild disc-osteophyte complex. There is moderate bilateral uncovertebral joint arthropathy. There is moderate bilateral facet joint arthropathy. There is moderate to severe bilateral neural foraminal stenosis. There is no spinal canal stenosis. C7-T1: Minimal disc-osteophyte complex. There is no uncovertebral joint arthropathy. There is mild left worse than right facet joint arthropathy. There is no neural foraminal stenosis. There is no spinal canal stenosis. MR/MR cervical spine wo con IMPRESSION: Moderate multilevel degenerative spondyloarthropathy of the cervical spine as described in detail above. Most notably, there is mild to moderate spinal canal stenosis at C5-C6. Moderate to severe neural foraminal stenoses at C5-C6 and C6-C7.
[2024-02-22 11:40] LABS: Estimated Average Glucose 146 mg/dL; Hemoglobin A1c % 6.7 % (<6.0)
== END 2024-02-22 10:42 | disposition home or self-care (01) ==
LOC: HO.MRI 10:41
PROVIDERS: PCP Pediatrics; Visit Provider Nurse Practitioner Family
DX: R20.0 Anesthesia of skin (principal); R20.2 Paresthesia of skin; M54.12 Radiculopathy, cervical region; M47.812 Spondylosis without myelopathy or radiculopathy, cervical region; R73.03 Prediabetes
CPT/HCPCS: 36415; 72141; 83036

== ENCOUNTER 2024-02-29 10:24 | Outpatient (AMB) | payer OTHER, SELFPAY ==
--- NOTE | 2024-02-29 10:29 | A.SPINEOV_ITS ---
Intake Intake Visit Reasons: Anesthesia of skin Intake Note: Mr. Birmingham is here today c/o right sided neck pain that shoots down to the right arm with numbness and tingling. Geodetic Advisor Required: No Allergies No Known Allergies [No Known Allergies*] Allergy (Verified 02/29/24 10:37) Assessment & Plan Assessment & Plan (1) Carpal tunnel syndrome of right wrist: Code(s): G56.01 - Carpal tunnel syndrome, right upper limb (2) Cervical radiculopathy: Code(s): M54.12 - Radiculopathy, cervical region Plan Dear colleague Thank you for referring Hira Birmingham to the office today with a chief complaint of right-sided neck pain and right hand numbness. HPI: This 43-year-old male developed right-sided neck pain 4 months ago. The pain radiates from his neck down to his right arm and stops at the elbow. He also has pain in his shoulder blade. On top of that he has numbness in his right hand with activity. The left side is unaffected. He occasionally drops objects with his right hand. An EMG showed acute C6 radiculopathy and a right-sided carpal tunnel syndrome. He is scheduled to undergo a carpal tunnel release at the end of the month. 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 Nonsmoker Physical Exam: Pleasant male. Spurling test produces pain on the right side of his neck. Motor exam shows a grade 3/5 weakness of the muscular abductor pollicis on the right side the remainder of the muscle groups are intact. Sensory exam is intact. Reflexes are symmetrically low. No pathological reflexes. Tinel is positive over the right wrist Radiological Studies: MRI done at [facility] on 02/22/2024 shows severe degenerative disc disease C5-C6 and a disc osteophyte complex compressing the right C6 nerve root as well as a disc osteophyte complex at C6-7 producing bilateral C7 foraminal narrowing. Impression/Plan: This patient is suffering from a cervical radiculopathy and a carpal tunnel syndrome on the right side. He is scheduled to undergo a carpal tunnel release in the near future. Sometimes the cervical radiculopathy may improve after carpal tunnel release and therefore I advised him to return to my office if his symptoms remain severe after the hand procedure and he considers surgery for the cervical radiculopathy. The treatment will be an anterior diskectomy and fusion C5-6 and C6-7. I did discuss the procedure and expected postoperative outcome. Thank you for allowing me to participate in your patients care. total time spent was 50 minutes in counseling ,coordination of plan, personal review of imaging, surgical decision making and subsequent plan Jack Zhang MD, PhD [facility] Trained Neurosurgeon Director, [facility] Coding Level of Care Code New Pt Level 4 (41467) Diagnoses Carpal tunnel syndrome of right wrist G56.01 Cervical radiculopathy M54.12
== END 2024-02-29 11:07 | disposition home or self-care (01) ==
PROVIDERS: PCP Pediatrics; Referring Provider Physician Assistant; Visit Provider Neurological Surgery
DX: M54.12 Radiculopathy, cervical region (principal)
CPT/HCPCS: 99204

== ENCOUNTER → 2024-02-29 10:24 | Outpatient (BNVA) | payer OTHER, SELFPAY | PROVIDERS: PCP Pediatrics; Referring Provider Physician Assistant; Visit Provider Neurological Surgery | DX: G56.01 Carpal tunnel syndrome, right upper limb (principal); M54.12 Radiculopathy, cervical region | CPT/HCPCS: 99202 ==

== ENCOUNTER 2024-03-12 07:54 | Day surgery (SDC) | payer OTHER, SELFPAY ==
[2024-03-12 09:30] VITALS: BP 120/76; PULSE 83; RESP 20; TEMP 36.6; O2SAT 98; BMI 37.4
--- NOTE | 2024-03-12 11:35 | MHC.SHP ---
Pre-Procedural Eval Section A - 24 Hr Update-Section A only Date of Service: 03/12/24 The patient is an INPATIENT: No Changes since office visit: No Cold of Flu in the past 2 weeks, No New Medical Problems, No Changes in Medication and No Patient answered all questions The patient has been examined within 24 hours of the surgical procedure. The History & Physical has been completed within 30 days and I have reviewed it.: Yes Section B - Complete if H&P > 30 days Chief Complaint: Carpal tunnel syndrome, right upper limb Allergies: Allergies Allergy/AdvReac Type Severity Reaction Status Date / Time No Known Allergies Allergy Verified 02/29/24 10:37 [No Known Allergies*] Exam Exam Comment: Right carpal tunnel syndrome Plan Diagnosis/Plan: Unchanged I have reviewed the history and physical and performed a pertinent physical examination on my patient. No changes have occurred unless specified. Time Spent With Patient Time: Total time managing care of this patient today ____ minutes.
--- NOTE | 2024-03-12 11:36 | W.PM.OPN ---
Operative Note Operative Note Date of Service: 03/12/24 Narrative: Preop diagnosis: 1. Right Carpal tunnel syndrome Postop diagnosis: same Procedure: 1. Right Carpal tunnel release Surgeon: Jillian High MD Anesthesia: local block using 1% lidocaine with epinephrine Findings: Thickened transverse carpal ligament. EBL: Less than 5 mL Specimens: None Complications: None Disposition: Brought to recovery room in stable condition Plan: Follow-up for 10-14 days for wound check and suture removal Indications: The patient is 43 years old, with right carpal tunnel syndrome that has been unresponsive to nonoperative management. The risks and benefits of operative treatment including but not limited to risk of damage to blood vessels, nerves, tendons, infection, persistent pain, persistent symptoms, or possible need for additional surgery were discussed with the patient and the patient wishes to proceed with surgery. Procedure: Once consent was obtained a local block was performed using a combination of 1% lidocaine with epinephrine. The patient was then brought back to the operating suite and placed on the operative table in supine position. The right upper extremity was prepped and draped in a standard surgical fashion. Once assured that we had a good block, a 2.0 cm longitudinal incision was made centered over the carpal tunnel. The incision was made through the skin to the subcutaneous tissues using a #15 blade. Dissection was made down to the level of the transverse carpal ligament with care being taken to protect the palmar cutaneous nerve. Once the transverse carpal ligament was clearly visualized, a longitudinal incision was made in the transverse carpal ligament 1st using a #15 blade, then using tenotomy scissors under direct visualization. Care was taken to look for and protect the motor branch of the median nerve when seen in this area. Once satisfied with our carpal tunnel release the wound was copiously irrigated with normal saline and hemostasis was obtained with a brief period of local pressure. The skin edges were reapproximated with some 5.0 nylon suture material and a sterile dressing was applied. The patient appears to have tolerated the procedure well and with no complications. All digits were well vascularized at the conclusion of the case.
[2024-03-12 12:26] VITALS: BP 136/85; PULSE 95; RESP 12; O2SAT 98
== END 2024-03-12 12:27 | disposition home or self-care (01) ==
PROVIDERS: PCP Pediatrics; Visit Provider Orthopaedic Surgery
PROC: (CPT 64721; principal; 2024-03-12 10:20)
DX: G56.01 Carpal tunnel syndrome, right upper limb (principal); R20.0 Anesthesia of skin; E11.9 Type 2 diabetes mellitus without complications; M54.12 Radiculopathy, cervical region
CPT/HCPCS: 64721; J0171

== ENCOUNTER → 2024-03-12 07:54 | Outpatient (BNV) | payer OTHER, SELFPAY | PROVIDERS: PCP Pediatrics; Visit Provider Orthopaedic Surgery | DX: G56.01 Carpal tunnel syndrome, right upper limb (principal) | CPT/HCPCS: 64721 ==

== ENCOUNTER 2024-03-27 08:59 | Outpatient (AMB) | payer OTHER, SELFPAY ==
--- NOTE | 2024-03-27 09:09 | MHC.OFFVIS ---
Vital Signs 03/27/24 09:14 Height 5 ft 5 in Weight 225 lb BMI 37.4 Intake Visit Reasons: PO RT CTR 03/12/24 AR Intake Note: Ranjeet 43 yr old male presents today for his PO visit for his RT CTR 03/12/24 AR. States symptoms have improved and is doing well. Sutures removed and steri strips applied. Allergies No Known Allergies [No Known Allergies*] Allergy (Verified 03/27/24 09:29) HPI HPI PO RT CTR 03/12/24 AR: Details: Ranjeet is a 43 year old right hand dominant man who returns S/P right carpal tunnel release, DOS: 03/12/24 He says he is doing well and his symptoms have improved. 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 He also has cervical radiculopathy and follows with Pain management for this. He was seen by Dr. Zhang at the spine center on 02/29/24. he says his neck only bothers him occasionally, and thinks this may be related to his pillow. 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 Sutures removed and Steri-Strips applied He can make a fist and extend all his digits Sensation is improved and now normal to the tips of all digits Cap refill is brisk Nerve Conduction Study Right-side only IMPRESSION: 1. This is an abnormal study. 2. There is electrodiagnostic findings suggestive for right C5-6 acute radiculopathy. 3. Incidentally, there is electrodiagnostic evidence for right median neuropathy at the wrist, consistent with Carpal Tunnel Syndrome. 4.. There is no electrodiagnostic evidence for ulnar neuropathy, or brachial plexopathy. Cara Altman MD, MIK 11/25/23 Psych Appearance: grossly normal Affect: normal affect Attitude: cooperative Assessment & Plan Assessment & Plan (1) Carpal tunnel syndrome of right wrist: Code(s): G56.01 - Carpal tunnel syndrome, right upper limb Category: Medical (2) Cervical radiculopathy: Code(s): M54.12 - Radiculopathy, cervical region Category: Medical Plan Assessment & Plan: 1. Right carpal tunnel syndrome, S/P release Pre-operative symptoms intermittent, but daily, worse at night Evidence of double-crush syndrome on NCS Now with normal sensation and good resolution of his nighttime symptoms The patient appears to be doing well post-operatively I educated him about the post-operative course I discussed activity modifications, he is to lift nothing heavier than a cellphone for the next two weeks He will perform gentle ROM exercises at home He should avoid any underwater activities for the next 5 days He should gently massage about the incision site to reduce the risk of hypersensitivity He can follow up prn 2. Right-sided cervical radiculopathy He has been seen by both Pain Management and the Spine center for this He will follow up with Dr. Zhang, prn, if he develops any new or worsening symptoms. Scribed for Jillian High MD by maycol Zimmer, on 03/27/24 at 9:45 AM, EST. Scribe Plan - Not visible on output: Scribed for Jillian High MD by maycol Zimmer, on [ ] at [ ], EST. Coding Level of Care Code Global (97202) Diagnoses Carpal tunnel syndrome of right wrist G56.01 Cervical radiculopathy M54.12
[2024-03-27 09:14] VITALS: BMI 37.4
== END 2024-03-27 10:47 | disposition home or self-care (01) ==
PROVIDERS: PCP Pediatrics; Visit Provider Orthopaedic Surgery
DX: G56.01 Carpal tunnel syndrome, right upper limb (principal); M54.12 Radiculopathy, cervical region
CPT/HCPCS: 99024

== ENCOUNTER → 2024-03-27 08:59 | Outpatient (BNVA) | payer OTHER, SELFPAY | PROVIDERS: PCP Pediatrics; Visit Provider Orthopaedic Surgery | DX: Z09 Encounter for follow-up examination after completed treatment for conditions other than malignant neoplasm (principal); M54.12 Radiculopathy, cervical region; Z86.69 Personal history of other diseases of the nervous system and sense organs | CPT/HCPCS: 99212 ==

== ENCOUNTER 2024-06-27 10:00 | Outpatient (REF) | payer OTHER, SELFPAY ==
[2024-06-27 14:27] LABS: MANUAL DIFF FLAG NO
[2024-06-27 14:33] LABS: Basophils Absolute Auto 0.1 X10*3/uL (0.0-0.2); Basophils Percent Auto 0.6 % (0-2); Eosinophils Absolute Auto 0.4 X10*3/uL (0.0-0.4); Eosinophils Percent Auto 4.4 % (0-4); Hemoglobin 15.8 g/dl (14.0-18.0); Imm Gran Abs Auto 0.07 X10*3/uL (0.00-0.03); Imm Gran Pct Auto 0.8 % (0.0-0.4); Lymphocytes Absolute Auto 2.4 X10*3/uL (1.2-4.9); Lymphocytes Percent Auto 28.5 % (20-40); Mean Corpuscular HGB Conc 35.1 g/dl (31.0-36.0); Mean Corpuscular Hemoglobin 32.3 pg (27.0-33.0); Mean Platelet Volume 12.9 fL (9.4-12.4); Monocytes Absolute Auto 0.6 X10*3/uL (0.1-1.2); Monocytes Percent Auto 7.2 % (2-11); Neutrophils Absolute Auto 4.9 x10*3/uL (2.0-8.3); Neutrophils Percent Auto 58.5 % (45-73); Platelet Count 217 X10*3/uL (160-400); Red Blood Count 4.89 X10*6/uL (4.60-5.80); Red Cell Distribution Width 12.9 % (11.0-16.0); White Blood Count 8.4 X10*3/uL (4.8-10.8)
[2024-06-27 14:41] LABS: Estimated Average Glucose 154 mg/dL
[2024-06-27 14:57] LABS: Alanine Aminotransferase 57 U/L (0-40); Albumin Level 4.3 g/dL (3.5-5.0); Alkaline Phosphatase 90 U/L (39-117); Anion Gap 11 (12-20); Aspartate Amino Transferase 44 U/L (5-37); Bilirubin Total 1.8 mg/dL (0.0-1.0); Blood Urea Nitrogen 13 mg/dL (9-16); Calcium 9.4 mg/dL (8.4-10.2); Carbon Dioxide 25 mmol/L (22-29); Chloride 106 mmol/L (96-108); Cholesterol 113 mg/dL (<200); Estimated Glomerular Filt Rate > 60; Glucose Random 163 mg/dL (60-115); HDL Cholesterol 50 mg/dL (>40); LDL Cholesterol Calculated 49 mg/dL (<100); Potassium 4.2 mmol/L (3.3-5.1); Sodium 138 mmol/L (135-145); Total Protein 7.6 g/dL (6.5-8.0); Triglycerides 73 mg/dL (<150)
[2024-06-27 15:05] LABS: Creatinine Urine 223.57 mg/dL; Microalbum/Creatinine Ratio Ur 4.9 ug/mg cr (<30)
[2024-06-27 15:13] LABS: TSH reflex Free T4 2.67 uIU/mL (0.32-4.0)
[2024-06-28 05:22] LABS: HIV AB/AG Nonreactive (Nonreactive); HIV Num 1 0.06 S/CO (0.00-0.99)
[2024-06-28 19:44] LABS: RPR Rapid Plasma Reagin NON-REACTIVE (NON-REACTIVE)
[2024-06-29 08:29] LABS: HCV Log PCR 6.45 Log IU/mL (NOT DETECTED); HepC Viral Load 2830000 IU/mL (NOT DETECTED)
== END 2024-06-27 10:01 | disposition home or self-care (01) ==
LOC: HO.CHCLDS 10:00
PROVIDERS: Visit Provider Registered Nurse
DX: Z00.00 Encounter for general adult medical examination without abnormal findings (principal); Z13.1 Encounter for screening for diabetes mellitus; Z13.89 Encounter for screening for other disorder
CPT/HCPCS: 36415; 80053; 80061; 82043; 82570; 83036; 84443; 85025; 86592; 87389; 87522

== ENCOUNTER 2025-05-13 18:28 | Emergency (ER) | payer OTHER, SELFPAY ==
--- NOTE | ~2025-05-13 | CT_ITS ---
CLINICAL HISTORY: L flank pain, l groin pain, kidney stone v. hernia CT abdomen and pelvis without contrast Comparison: None provided Findings: No acute findings within visualized lung bases. Liver, adrenal glands, pancreas, are unremarkable. Suggestion of mild splenomegaly. Cholecystectomy. Scattered punctate nonobstructing right renal calculi. There is an obstructing 3 mm calculus in the left mid ureter with mild upstream hydroureteronephrosis. No additional renal, ureteral or bladder calculi identified. Normal-sized prostate. Nonaneurysmal abdominal aorta. Nondistended stomach. Normal caliber small bowel. No obstruction. Colon is unremarkable. Normal appendix. No definite pathologically enlarged lymph nodes. No free air or free fluid. No acute osseous abnormality. No lytic or sclerotic osseous lesions. Impression: 1. Obstructing 3 mm calculus in the left mid ureter creating mild upstream hydroureteronephrosis. 2. Punctate nonobstructing right renal calculi. 3. Additional findings as above. This document has been electronically signed by: Jaziel Saul MD on 05/13/2025 22:15:45
[2025-05-13 18:30] VITALS: BP 165/87; PULSE 66; RESP 18; TEMP 36.6; O2SAT 100; BMI 34.4
--- NOTE | 2025-05-13 18:31 | ED.GENADULT ---
HPI - General Adult General Chief complaint: Abdominal Pain Stated complaint: left lower abd pain radiating to the back Time Seen by Provider: 05/13/25 21:22 Source: patient Mode of arrival: ambulatory Limitations: no limitations History of Present Illness ED Provider: DR. Rubio HPI narrative: 44-year-old male came in for evaluation of left flank pain radiating down to the left groin times 1 day, associated with nausea and vomiting, patient also report nonbloody watery diarrhea since yesterday, no exposure to sick contacts, no history of eating bad food, no recent history of travel, no recent history of using antibiotic. No dysuria, no frequency urination, no hematuria, no fever, no chills, sexually active with 1 partner with no history or risk for STDs, no urethral discharge. Last bowel movement was this morning, patient has been passing gas. Abdominal surgery significant for cholecystectomy, left inguinal hernia repair. Related Data Home Medications ?Medication ?Instructions ?Recorded ?Confirmed semaglutide 0.25 mg or 0.5 mg (2 mg subcut 10/11/23 mg/3 mL) subcutaneous pen injector (Ozempic) trazodone 50 mg tablet 50 mg PO BEDTIME 10/11/23 escitalopram oxalate 10 mg tablet 10 mg PO DAILY 01/12/24 Previous Rx's ?Medication ?Instructions ?Recorded methocarbamol 750 mg tablet 750 mg PO Q8H PRN for muscle spasm 12/19/23 #90 tabs arm brace (Wrist Brace) #1 ea 01/12/24 gabapentin 300 mg capsule 300 mg PO BEDTIME for pain #30 caps 01/12/24 ibuprofen 600 mg tablet 600 mg PO Q8H PRN pain #14 tabs 05/13/25 oxycodone 5 mg tablet 5 mg PO Q8H PRN pain #10 tabs 05/13/25 tamsulosin 0.4 mg capsule (Flomax) 0.4 mg PO DAILY #7 caps 05/13/25 Allergies Allergy/AdvReac Type Severity Reaction Status Date / Time No Known Allergies (No Known Allergy Verified 05/13/25 18:32 Allergies*) Review of Systems Review of Systems: All other systems are reviewed and are negative Constitutional: Reports as per HPI and Reports no additional constitutional complaints Eyes: Reports as per HPI and Reports no additional eye complaints Reports system reviewed and no additional complaints, except as documented Cardiovascular: Reports as per HPI and Reports no additional cardiovascular complaints Respiratory: Reports as per HPI and Reports no additional respiratory complaints Gastrointestinal: Reports as per HPI and Reports no additional gastrointestinal complaints Genitourinary: Reports no additional female genitourinary complaints Musculoskeletal: Reports no additional musculoskeletal complaints Skin/Breast: Reports system reviewed and no additional complaints, except as docu Psychiatric: Reports no additional psychiatric complaints Endocrine: Reports no additional endocrine complaints Hematologic/Lymphatic: Reports no additional hematologic/lymphatic complaints Allergic/Immunologic: Reports no additional allergic/immunologic complaints Reports system reviewed and no additional complaints, except as documented and Reports Abnormal speech present [facility] Social History Social History Alcohol intake: never Patient Tobacco Use Status: Never used Tobacco Smoked in Last 30 Days: No Advance Directives: No Advance Directives Information Provided: Yes Do you have a plan to hurt others: No Plan Current occupational status: employed 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 Blood pressure elevated. Heart rate normal. Respiratory rate normal. Temperature normal. Oxygen saturation normal. Appearance: Alert. Oriented X3. No acute distress. Head: Normal external exam. Normocephalic. Atraumatic. No Ng signs noted. No raccoon eyes noted Eyes: PERRLA. EOMI. Conjunctiva and sclera normal. Eyelids normal. ENT: TM's Normal. Pharynx normal. Uvula midline. Moist mucous membranes. No trismus noted. No drooling noted. No muffled voice noted. Neck: Normal inspection. Neck supple. FROM. No adenopathy. Thyroid Normal. No meningeal signs. No neck mass noted. CVS: Normal heart rate and rhythm. Heart sound normal. No murmurs noted. Pulses normal throughout. Respiratory: No respiratory distress. Painless inspiration. Breath sounds normal. No wheezes/rales/rhonchi noted. Chest nontender. No accessory muscle usage noted or decreased air movement noted. Abdomen: Soft, left lower quadrant abdominal tenderness, no rebound tenderness, no guarding, Bowel sounds normal in all 4 quadrants. No distention noted. No organomegaly noted. No visible injury noted. exam: Circumcised, no scrotal swelling or redness, +cremasteric reflexes bilaterally, normal lie left testicle, no palpable mass, no fluctuation. Back: Left CVA tenderness. Full range of motion noted. Skin: Skin warm and dry. Normal skin color. Normal skin turgor. No rashes/lesions/lacerations noted. Extremities: No lower extremity edema. Extremities exhibit normal range of motion. Extremities nontender. Neuro: Oriented X 3. Cranial nerve exam: II-XII are grossly intact No motor deficit. No sensory deficit. Reflexes normal. Course Course Course Narrative: RME performed by Kaitlin Waterman PA-C. Patient is a 44 year old assigned male at presenting to the emergency department with nausea, vomiting, diarrhea, and back pain. Detailed physical exam and review of systems are deferred to the team primary care physician. EKG, labs, and swabs ordered. Patient placed back in the waiting room pending room availability and results. Reevaluation(s) Reevaluation #1: 24-year-old male presents with left flank pain, physical exam, urine intervals is and CT consistent with 3 mm obstructing stone in the left mid ureteral. Patient's pain is under better control with morphine and Toradol, normal kidney function tests, considered DC home with oxycodone, NSAIDs, Flomax, follow-up with urology. Time: 23:30 Medications Administered Discontinued Medications Generic Name Dose Route Start Last Admin Trade Name Freq PRN Reason Stop Dose Admin Lactated Ringer's 1,000 mls @ 999 mls/hr 05/13/25 21:30 05/13/25 21:53 Lr IV 05/13/25 22:30 999 mls/hr .Q1H1M ANGELICA Administration Ketorolac Tromethamine 15 mg 05/13/25 21:29 05/13/25 21:53 Ketorolac Tromethamine 15 Mg/Ml Vial IVPUSH 05/13/25 21:30 15 mg ONCE ONE Administration Ondansetron HCl 4 mg 05/13/25 21:29 05/13/25 21:52 Ondansetron Hcl 4 Mg/2 Ml Vial IVPUSH 05/13/25 21:30 4 mg ONCE ONE Administration Medical Decision Making Differential Diagnosis Differential Diagnoses: The differential diagnosis associated with the presentation includes (Colitis, diverticulitis, gastroenteritis, UTI, pyelonephritis, obstructing kidney stone, hernia, testicular torsion, electrolyte derangement, severe anemia.) Admission/Observation Consideration of admission/observation: Escalation of care including admission/observation considered Lab Data MDM Lab Attestation statement: I reviewed the patient's lab results. 05/13/25 18:37 05/13/25 18:37 Labs: Lab Results 05/13/25 Range/Units 18:37 WBC 9.4 (4.8-10.8) X10*3/uL RBC 4.50 L (4.60-5.80) X10*6/uL Hgb 14.7 (14.0-18.0) g/dl Hct 40.9 L (42.0-52.0) % MCV 90.9 (80.0-98.0) fL MCH 32.7 (27.0-33.0) pg MCHC 35.9 (31.0-36.0) g/dl RDW 13.5 (11.0-16.0) % Plt Count 209 (160-400) X10*3/uL MPV 10.6 (9.4-12.4) fL Immature Gran % (Auto) 0.2 (0.0-0.4) % Neut % (Auto) 68.0 (45-73) % Lymph % (Auto) 24.0 (20-40) % Pickens % (Auto) 6.1 (2-11) % Eos % (Auto) 1.3 (0-4) % Baso % (Auto) 0.4 (0-2) % Lymph # (Auto) 2.3 (1.2-4.9) X10*3/uL Pickens # (Auto) 0.6 (0.1-1.2) X10*3/uL Eos # (Auto) 0.1 (0.0-0.4) X10*3/uL Baso # (Auto) 0.0 (0.0-0.2) X10*3/uL Abs Immat Gran (auto) 0.02 (0.00-0.03) X10*3/uL Absolute Neuts (auto) 6.4 (2.0-8.3) x10*3/uL Absolute Nucleated RBC 0.000 (0.0-0.012) X10*3/uL Nucleated RBC % (auto) 0.0 (0.0-0.2) /100WBC Sodium 142 (135-145) mmol/L Potassium 3.8 (3.3-5.1) mmol/L Chloride 108 (96-108) mmol/L Carbon Dioxide 24 (22-29) mmol/L Anion Gap 14 (12-20) BUN 19 H (9-16) mg/dL Creatinine 1.25 (0.5-1.4) mg/dL Estim Creat Clear Calc 78.5 Estimated GFR > 60 Random Glucose 134 H (60-115) mg/dL Calcium 9.5 (8.4-10.2) mg/dL Magnesium 2.2 (1.6-2.6) mg/dL Total Bilirubin 2.5 H (0.0-1.0) mg/dL AST 30 (5-37) U/L ALT 24 (0-40) U/L Alkaline Phosphatase 69 (39-117) U/L Troponin I High Sens < 2.7 (<3.5-35.0) ng/L Total Protein 7.8 (6.5-8.0) g/dL Albumin 4.9 (3.5-5.0) g/dL Lipase 26 (8-78) U/L Influenza Type A (PCR) NEGATIVE (Negative) Influenza Type B (PCR) NEGATIVE (Negative) RSV RNA Qual (PCR) NEGATIVE (Negative) SARS-CoV-2 RNA (RT-PCR) NEGATIVE (Negative) Independent Interpretation I performed an independent interpretation of an: CT Scan (Abdomen pelvis:. Obstructing 3 mm calculus in the left mid ureter creating mild upstream hydroureteronephrosis. 2. Punctate nonobstructing right renal calculi. 3. Additional findings as above.) Radiology Impression Discussion of test interpretation with radiology: I have reviewed the radiologist's reading. Discharge Plan Discharge Clinical Impression: Renal colic on left side, Calculus of kidney and ureter Patient Disposition: Home, Self-Care Instructions: Kidney Stones (ED) Prescriptions: New oxycodone 5 mg tablet 5 mg PO Q8H PRN (Reason: pain) Qty: 10 0RF Rx Instructions: Partial Fill upon patient request. tamsulosin [Flomax] 0.4 mg capsule 0.4 mg PO DAILY Qty: 7 0RF ibuprofen 600 mg tablet 600 mg PO Q8H PRN (Reason: pain) Qty: 14 0RF No Action methocarbamol 750 mg tablet 750 mg PO Q8H PRN (Reason: for muscle spasm) Qty: 90 0RF escitalopram oxalate 10 mg tablet 10 mg PO DAILY gabapentin 300 mg capsule 300 mg PO BEDTIME Qty: 30 1RF (DME) Wrist Brace Misc See Rx Instructions .Route Qty: 1 0RF Rx Instructions: As directed Ozempic 0.25 mg or 0.5 mg (2 mg/3 mL) pen injector subcut trazodone 50 mg tablet 50 mg PO BEDTIME Referrals: Micaela Pena MD [Primary Care Provider, Medical] Liu Hercules MD [Physician, Urology] Print Language: Citizen Of [place]
--- NOTE | 2025-05-13 18:32 | ECG_ITS ---
Test Reason : n/v Blood Pressure : */* mmHG Vent. Rate : 78 BPM Atrial Rate : 78 BPM P-R Int : 134 ms QRS Dur : 80 ms QT Int : 376 ms P-R-T Axes : 10 12 14 degrees QTcB Int : 428 ms Normal sinus rhythm Minimal voltage criteria for LVH, may be normal variant ( R in aVL ) Borderline ECG No previous ECGs available Referred By: Kaitlin Waterman Electronically Signed By: HUI MCDERMOTT MD
[2025-05-13 18:50] LABS: MANUAL DIFF FLAG NO
[2025-05-13 18:51] LABS: Hematocrit 40.9 % (42.0-52.0); Hemoglobin 14.7 g/dl (14.0-18.0); Imm Gran Abs Auto 0.02 X10*3/uL (0.00-0.03); Imm Gran Pct Auto 0.2 % (0.0-0.4); Lymphocytes Absolute Auto 2.3 X10*3/uL (1.2-4.9); Mean Corpuscular HGB Conc 35.9 g/dl (31.0-36.0); Mean Corpuscular Hemoglobin 32.7 pg (27.0-33.0); Mean Corpuscular Volume 90.9 fL (80.0-98.0); NRBC Abs Auto 0.000 X10*3/uL (0.0-0.012); NRBC Pct Auto 0.0 /100WBC (0.0-0.2); Platelet Count 209 X10*3/uL (160-400); Red Blood Count 4.50 X10*6/uL (4.60-5.80); White Blood Count 9.4 X10*3/uL (4.8-10.8)
[2025-05-13 19:06] LABS: Alanine Aminotransferase 24 U/L (0-40); Albumin Level 4.9 g/dL (3.5-5.0); Alkaline Phosphatase 69 U/L (39-117); Anion Gap 14 (12-20); Aspartate Amino Transferase 30 U/L (5-37); Blood Urea Nitrogen 19 mg/dL (9-16); Calcium 9.5 mg/dL (8.4-10.2); Carbon Dioxide 24 mmol/L (22-29); Chloride 108 mmol/L (96-108); Creatinine Clr Calc Pharmacy 78.5; Estimated Glomerular Filt Rate > 60; Magnesium 2.2 mg/dL (1.6-2.6); Potassium 3.8 mmol/L (3.3-5.1); Sodium 142 mmol/L (135-145); Total Protein 7.8 g/dL (6.5-8.0)
[2025-05-13 19:22] LABS: Troponin-I High Sensitivity < 2.7 ng/L (<3.5-35.0)
[2025-05-13 19:29] LABS: Resp Syncy Virus RNA Qual PCR NEGATIVE (Negative); SARS COV2 PCR INHOUSE NEGATIVE (Negative)
--- OUTSIDE RECORDS SUMMARY | 2025-05-13 21:17 | XMS_ITS | Data Portability ---
Author Organization [facility] Address [address] [place] [address] Care Team Providers Care Market Development Director Name Role Phone KATERINA BERRIOS Technical Instructor Assessment No assessment recorded. Plan of Treatment Reminders Order Date Submit Date Provider Last Modified By Organization Details Last Modified Time Details Appointments None record ed. Lab None record ed. Referral None record ed. Procedures None record ed. Surgeries None record ed. Imaging None record ed. Medication Orders None record ed. Patient TargetsNo targets recorded. Patient Instructions Encounter Date Encounter Id Patient Instructions Last Modified By Organization Details Last Modified Time 05/30/2023 [id number] This physical does not replace the annual physical to be performed by your PCP. There may be additional screening tests that they will perform that we do not in the urgent care setting. Failure to follow up as recommended may result in significant adverse health consequences. If your symptoms worsen or you develop new symptoms that concern you, go to the emergency department for further evaluation. [email or web address] Not available 05/30/2023 17:58:20 Reason for Referral None Reported. Procedures Surgical History Date Name Laterality Status Provider Name and Address Organization Details Recorded Time 3 OC- Physical completed Clementine Banks [facility] 05/30/2023 19:08:53 Imaging Results None recorded. Procedure Notes None recorded. Medical Equipment None Reported. Vitals None Recorded Social History None recorded. Functional Status None recorded. Mental Status None recorded. Family History Nothing Reported. Medical History No medical history recorded. Past Encounters Encounter ID Performer Location Encounter Start Date Encounter Closed Date Diagnosis/Indication Diagnosis SNOMED-CT Code Diagnosis ICD10 Code Diagnosis Note [id number] [facility] [address] [place] [address] 05/26/2021 15:45:44 05/26/2021 17:31:51 [id number] [address] [address] [address] [facility] [place] [address] 06/02/2021 16:38:43 06/02/2021 18:45:20 [id number] [address] [facility] [address] [facility] [address] [place] [phone] 05/20/2021 17:20:29 05/20/2021 19:29:24 [id number] [address] [address] [facility] [address] [place] [address] 06/10/2021 16:34:54 06/10/2021 18:39:55 [id number] [place] Sam[place] [address] [address] [place] [address] 05/30/2023 16:33:29 05/30/2023 18:12:35 History and physical examination, pre-employment 324780830 Z02.1 Diabetes m ellitus screening [id number] Z13.1 Health Concerns Section Related Observation LastModified by Organization Detai ls LastModified Time None Recorded Concern Status LastModified by Organization Details LastModified Time None Recorded Advance Directives Directive None Recorded Payers Insurance Date Sequence Insurance Name Policy Number Policy Dumont Covered Member ID Dumont Member ID Guarantor Name 10/13/2022 ALIE [id number] Oc-Medexpre ss Occ Med Generic (Move To Hold) [[id number]] Ranjeet [place] 05/30/2023 OC-ESCREEN Ranjeet [place] [id number] Ranjeet Birmingham Notes Date Note Type Note Provider Name a nd Address Organization Details Recorded Time 05/30/2023 text/html physical Ady Sampson NP [address] [place], [address], [place] - [facility] 05/30/2023 19:53:52
--- OUTSIDE RECORDS SUMMARY | 2025-05-13 21:17 | XMS_ITS | Encounter Summary ---
Author Organization [facility] Address [address] [place] [address] Care Team Providers Care Wildlife Ecologist Name Role Phone Micaela Pena Primary Care Provider [phone] Encounter Details Date Type Department Care Team ([facility] st Contact Info) Description 12/07/2022 Orders Only [facility] Gastroenterology [address] [place] [address] Agueda Harkins, DO [address] [place] [address] Social History Tobacco Use Types Packs/Day Years Used Date Smoking Tobacco: Former Cigarettes Smokeless Tobacco: Never Sex and Gender Information Value Date Recorded Sex Assigned at Male 07/16/2024 8:28 PM EDT Legal Sex Male 12:01 PM EST Gender Identity Male 07/16/2024 8:28 PM EDT Sexual Orientation Straight 07/16/2024 8: 28 PM EDT documented as of this encounter Plan of Treatment Not on file documented as of this encounter Visit Diagnoses Not on filedocumented in this encounter Care Teams Wildlife Ecologist Relationship Specialty Start Date End Date Micaela Pena [address] [place] [address] PCP - General Internal Medicine 10/27/20 documented as of this encounter
--- OUTSIDE RECORDS SUMMARY | 2025-05-13 21:17 | XMS_ITS | Encounter Summary ---
Author Organization [employer] Address [address] [facility] [address] [address] [place] [address] Care Team Providers Care Construction Plumber Name Role Phone Micaela Pena MD Primary Care Provider [phone] Reason for Visit * Reason Onset Date Comments rs cancelled appt 01/08/2025 Encounter Details Date Type Department Care Team ([facility] Contact Info) Description 01/08/2025 Telephone [facility] [address] [place], [place] [phone] Fabiola Sandoval [address] [place] [address] rs cancelled appt Social History Tobacco Use Types Packs/Day Years Used Date Smoking Tobacco: Former Cigarettes Passive Smoke Exposure: Never Smokeless Tobacco: Never Alcohol Use Standard Drinks/Week Comments Never 0 (1 standard drink = 0.6 oz pur e alcohol) Depression Answer Date Recorded Patient Health Questionnaire-9 Score 0 05/28/2024 Patient Health Questionnaire-9 Score 0 05/28/2024 Last PHQ-9: Questionnaire Data Not on file 0 05/28/2024 Housing Stability Answer Date Recorded What is your housing situation today? I have shashank back 06/19/[address] you li ve. Do you have problems with any of the following? None of the above 06/19/2024 Food Insecurity Answer Date Recorded Within the past 12 months, y ou worried that your food would run out before you got money to buy more: Often true 06/19/2024 Within the past 12 months,th e food you bought just didn't last and you didn't have enough money to get more: Often true 04/2024 Transportation Answer Date Recorded In the past 12 months, has l ack of transportation kept you from medical appts, meetings, work or from getting things needed for daily living? No 06/19/2024 Utilities Answer Date Recorded In the past 12 months, has t he electric, gas, oil or water company threatened to shut off services in your home? No 06/19/2024 Depression Answer Date Recorded Patient Health Questionnaire-2 Score 0 05/28/2024 Internet Access Answer Date Recorded Internet Access Q1 Yes 07/16/2024 Internet Access Q2 Not on file 07/16/2024 Sex and Gender Information Value Date Recorded Sex Assigned at Male 09/13/2022 10:18 AM EDT Legal Sex Male 10:18 AM EDT Gender Identity Male 09/13/2022 10:18 AM EDT Sexual Orientation Straight 09/13/2022 10 :18 AM EDT documented as of this encounter Miscellaneous Notes * Telephone Encounter - Sakina Chery - 01/08/2025 9:08 AM EST Patient called in to cancel and rs appt due to illness. Informed that office will reach out to him to rs appt. Understands there is a waiting period before he gets a call DR documented in this encounter Plan of Treatment Upcoming Encounters Date Type Department Care Team ([facility] st Contact Info) Description 07/02/2025 9:15 AM EDT Office Visit [facility] [address] [place] [address] Micaela Pena MD [address] [place] [address] documented as of this encounter Visit Diagnoses Not on filedocumented in this encounter Additional Health Concerns Assessment Noted Time PHQ-9 Depression Total Score: 0 05/28/20 24 1:16 PM EDT documented as of this encounter Care Teams Construction Plumber Relationship Specialty Start Date End Date Micaela Pena MD [address] [place] [address] PCP - General Family Medicine 11/14/18 documented as of this encounter
[2025-05-13 21:50] LABS: Lipase 26 U/L (8-78)
[2025-05-13] MEDS: Lactated Ringers 1,000 ML 999 ML IV (21:53)
[2025-05-14 00:46] VITALS: BP 157/87; PULSE 65; RESP 16; TEMP 36.7; O2SAT 99
[2025-05-14 00:53] VITALS: BP 157/87; PULSE 65; RESP 16; TEMP 36.7; O2SAT 99
== END 2025-05-14 00:55 | disposition home or self-care (01) ==
PROVIDERS: Physician Assistant Medical; Emergency Provider Emergency Medicine; PCP Pediatrics
DX: N13.2 Hydronephrosis with renal and ureteral calculous obstruction (principal); Z03.818 Encounter for observation for suspected exposure to other biological agents ruled out
CPT/HCPCS: 74176; 80053; 83690; 83735; 84484; 85025; 87637; 93005; 96361; 96374; 96375; 99284; 99285; J1885; J2270; J2405; J7120

== ENCOUNTER → 2025-05-13 18:32 | Outpatient (BNV) | payer OTHER, SELFPAY | PROVIDERS: Emergency Provider Emergency Medicine; PCP Pediatrics; Visit Provider Internal Medicine Cardiovascular Disease | DX: R11.2 Nausea with vomiting, unspecified (principal) | CPT/HCPCS: 93010 ==

== ENCOUNTER → 2025-05-13 21:28 | Outpatient (BNV) | payer OTHER, SELFPAY | PROVIDERS: Emergency Provider Emergency Medicine; PCP Pediatrics; Visit Provider Radiology Diagnostic Radiology | DX: N20.2 Calculus of kidney with calculus of ureter (principal) | CPT/HCPCS: 74176 ==

== ENCOUNTER 2025-05-21 13:41 | Outpatient (AMB) | payer OTHER, SELFPAY ==
--- NOTE | 2025-05-21 13:48 | A.OFFVIS_ITS ---
Intake Visit Reasons: Kidney Stones Intake Note: New Patient is present for kidney stones Urology Rx:tamsulosin Blood Thinners:none Imaging completed: 05/13/25 Billet Shearer Required: No Accompanied by: Self / Same As Patient Allergies No Known Allergies (No Known Allergies*) Allergy (Verified 05/21/25 13:57) HPI Comments Details: Ranjeet is a pleasant male. He is a patient of Dr. Bermudez. He is seen for the following urologic conditions - nephrolithiasis Recent passage of stone through emergency room Nephrolithiasis He presents for - initial evaluation for nephrolithiasis, Initial presentation through emergency room late April 2025 - does report prior stone a number of years ago Presenting symptoms included left flank pain Imaging - 05/08 CT scan showing distal 3 mm stone Laboratory investigations - 05/08. 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 Review of Systems Const Denies chills and Denies fever(s) Card Reports no additional complaints and Denies syncope Resp Denies cough GI Denies abdominal pain and Denies heartburn Reports as per HPI and Denies change in libido Neuro Denies syncope Psych Denies change in libido Endo Denies change in libido Physical Exam Const General: cooperative, healthy appearing, comfortable and no acute distress Orientation/consciousness: patient oriented x3 HEENT Face and sinus: Yes normal facial exam Mouth: moist mucous membranes Neck Neck: Yes normal visual inspection, Yes full ROM and Yes trachea midline Chest Chest palpation & inspection: normal inspection of the chest Resp Effort & Inspection: normal respiratory effort, able to speak in complete sentences and no respiratory distress GI Inspection: Yes normal to inspection Back/Spine/Pelvis Cervical Spine: normal cervical lordosis Thoracic/Lumbar Spine: thoracic and lumbar spine normal to inspection Skin General skin exam: no rashes or lesions noted Neuro General: patient oriented x3, gait normal, tone normal and moves all extremities Extrem General: Yes normal to inspection and Yes capillary refill normal Assessment & Plan Assessment & Plan (1) Nephrolithiasis: Code(s): N20.0 - Calculus of kidney Category: Medical Plan Interval imaging surveillance Patient Instructions: This note is constructed using voice recognition software. While every effort has been made to ensure accuracy violin mechanic errors may have been included. Imaging studies, laboratory and physical exam results were discussed and reviewed in detail. No major barriers to patient understanding were identified. An opportunity to ask questions regarding the treatment plan was provided. All questions were answered. The patient expressed understanding and agreement with the above treatment plan. The patient is aware they should contact our office by phone for worsening of their current condition or the appearance of new urologic symptoms. Compliance is encouraged with any medications and followup testing that is ordered. It is a privilege to participate in the urologic care of your patient. If you have any questions or concerns regarding treatment for the above conditions, or other urologic issues, please do not hesitate to contact me. The office telephone contact is [phone]. Sincerely, Dr Liu Hercules MD, [facility] - Urology Compassionate Specialist Care for the Genitourinary System Coding Level of Care Code New Pt Level 3 (94272) Diagnoses Nephrolithiasis N20.0
--- OUTSIDE RECORDS SUMMARY | 2025-05-21 14:31 | XMS_ITS | Encounter Summary ---
Author Organization [facility] Address [address] [place] [address] Care Team Providers Care Cotton Baler Name Role Phone Micaela Pena Primary Care Provider [phone] Encounter Details Date Type Department Care Team ([facility] st Contact Info) Description 12/07/2022 Orders Only [facility] Gastroenterology [address] [place] [address] Agueda Harkins, DO [address] [place] [address] Social History Tobacco Use Types Packs/Day Years [...] on filedocumented in this encounter Care Teams Cotton Baler Relationship Specialty Start Date End Date Micaela Pena [address] [place] [address] PCP - General Internal Medicine 10/27/20 documented as of this encounter
--- OUTSIDE RECORDS SUMMARY | 2025-05-21 14:31 | XMS_ITS | Data Portability ---
Author Organization [facility] Address [address] [place] [address] Care Team Providers Care Open Hearth Worker Name Role Phone KATERINA BERRIOS Supreme [address] Justice Assessment No assessment recorded. Plan of Treatment [...] By Organization Details Last Modified Time 05/30/2023 [id number] This physical does not replace the annual [...] SNOMED-CT Code Diagnosis ICD10 Code Diagnosis Note [id number] [facility] [address] [place] [address] 05/26/2021 15:45:44 05/26/2021 17:31:51 [id number] [address] [address] [place] [address] 06/02/2021 16:38:43 06/02/2021 18:45:20 [id number] [address] [address] [place] [phone] 05/20/2021 17:20:29 05/20/2021 19:29:24 [id number] [address] [address] [place] [address] 06/10/2021 16:34:54 06/10/2021 18:39:55 [id number] Ady Sampson [place] [address] [address] [place] [address] 05/30/2023 16:33:29 05/30/2023 18:12:35 History and physical examination, pre-employment [id number] Z02.1 Diabetes m ellitus screening [id number] Z13.1 Health Concerns Section Related Observation LastModified by Organization Detai ls LastModified Time None Recorded Concern Status LastModified by Organization Details LastModified Time None Recorded Advance Directives Directive None Recorded Payers Insurance Date Sequence Insurance Name Policy Number Policy Dumont Covered Member ID Dumont Member ID Guarantor Name 10/13/2022 ALIE [id number] Oc-Medexpre ss Occ Med Generic (Move To Hold) [[id number]] Ranjeet [place] 05/30/2023 OC-ESCREEN Ranjeet Birmingham [id number] Ranjeet Birmingham Notes Date Note Type Note Provider Name a nd Address Organization Details Recorded Time 05/30/2023 text/html physical Ady Sampson NP [address] [place], [address], [place] - [facility] 05/30/2023 19:53:52
--- OUTSIDE RECORDS SUMMARY | 2025-05-21 14:31 | XMS_ITS | Encounter Summary ---
Author Organization [employer] Address [address] [facility] 7t [place] [address] Care Team Providers Care Cattle Care Worker Name Role Phone Micaela Pena MD Primary Care Provider [phone] Reason for Visit * Reason Onset Date Comments rs cancelled appt 01/08/2025 Encounter Details Date Type Department Care Team ([facility] Contact Info) Description 01/08/2025 Telephone [facility] ADULT DENTAL [address] [place], [place] [phone] Fabiola Sandoval [address] [place] [address] rs cancelled appt Social History Tobacco Use [...] Upcoming Encounters Date Type Department Care Team (Late st Contact Info) Description 05/23/2025 3:15 PM EDT Office Visit [facility] MED & PEDS [address] [place] [address] Micaela Pena MD [address] [place] [address] 07/02/2025 9:15 AM EDT Office Visit [facility] [address] [place] [address] Micaela Pena MD [address] [place] [address] documented as of this encounter Visit Diagnoses Not on filedocumented in this encounter Additional Health Concerns Assessment Noted Time PHQ-9 Depression Total Score: 0 05/28/20 24 1:16 PM EDT documented as of this encounter Care Teams Cattle Care Worker Relationship Specialty Start Date End Date Micaela Pena MD [address] [place] [address] PCP - General Family Medicine 11/14/18 documented as of this encounter
== END 2025-05-21 14:35 | disposition home or self-care (01) ==
LOC: HO.HUSH 13:42
PROVIDERS: PCP Pediatrics; Visit Provider Urology
DX: N20.0 Calculus of kidney (principal); Z13.9 Encounter for screening, unspecified
CPT/HCPCS: 99203

== ENCOUNTER → 2025-05-21 13:41 | Outpatient (BNVA) | payer OTHER, SELFPAY | PROVIDERS: PCP Pediatrics; Visit Provider Urology | DX: N20.0 Calculus of kidney (principal) | CPT/HCPCS: 81003; 99202 ==

== ENCOUNTER 2025-07-02 09:38 | Outpatient (REF) | payer OTHER, SELFPAY ==
--- OUTSIDE RECORDS SUMMARY | 2025-07-02 10:43 | XMS_ITS | Encounter Summary ---
Author Organization [facility] Address [address] [place] [address] Care Team Providers Care Net Ui Developer Name Role Phone Micaela Pena Primary Care Provider [phone] Encounter Details Date Type Department Care Team ([facility] st Contact Info) Description 12/07/2022 Orders Only [facility] Gastroenterology [address] [place] [address] Agueda Harkins, DO [address] [place] [address] Social History Tobacco Use Types Packs/Day Years [...] on filedocumented in this encounter Care Teams Net Ui Developer Relationship Specialty Start Date End Date Micaela Pena [address] [place] [address] PCP - General Internal Medicine 10/27/20 documented as of this encounter
[2025-07-02 13:58] LABS: MANUAL DIFF FLAG NO
[2025-07-02 14:07] LABS: Hematocrit 44.5 % (42.0-52.0); Hemoglobin 15.2 g/dl (14.0-18.0); Imm Gran Abs Auto 0.02 X10*3/uL (0.00-0.03); Imm Gran Pct Auto 0.3 % (0.0-0.4); Lymphocytes Absolute Auto 2.1 X10*3/uL (1.2-4.9); Mean Corpuscular HGB Conc 34.2 g/dl (31.0-36.0); Mean Corpuscular Hemoglobin 32.1 pg (27.0-33.0); Mean Corpuscular Volume 93.9 fL (80.0-98.0); NRBC Abs Auto 0.000 X10*3/uL (0.0-0.012); NRBC Pct Auto 0.0 /100WBC (0.0-0.2); Platelet Count 203 X10*3/uL (160-400); Red Blood Count 4.74 X10*6/uL (4.60-5.80); White Blood Count 7.0 X10*3/uL (4.8-10.8)
[2025-07-02 14:17] LABS: Hemoglobin A1C 134.2198 umol/L; Total Hemoglobin (HGBA1C) 3919.7084 umol/L
[2025-07-02 14:25] LABS: Alanine Aminotransferase 25 U/L (0-40); Albumin Level 4.6 g/dL (3.5-5.0); Alkaline Phosphatase 71 U/L (39-117); Aspartate Amino Transferase 31 U/L (5-37); Cholesterol 137 mg/dL (<200); HDL Cholesterol 42 mg/dL (>40); Total Protein 7.6 g/dL (6.5-8.0); Triglycerides 73 mg/dL (<150)
[2025-07-02 14:30] LABS: Microalbum/Creatinine Ratio Ur 3.2 ug/mg cr (<30)
[2025-07-02 14:55] LABS: Folate 5.7 ng/mL (> or = 4.0); Vitamin B12 496 pg/mL (200-900)
== END 2025-07-02 09:39 | disposition home or self-care (01) ==
LOC: HO.CHCLDS 09:38
PROVIDERS: Visit Provider Pediatrics
DX: Z00.00 Encounter for general adult medical examination without abnormal findings (principal); E11.9 Type 2 diabetes mellitus without complications; F32.A Depression, unspecified
CPT/HCPCS: 36415; 80061; 80076; 82043; 82306; 82570; 82607; 82746; 83036; 84443; 85025

== ENCOUNTER 2025-10-29 10:40 | Outpatient (REF) | payer OTHER, SELFPAY ==
--- NOTE | ~2025-10-29 | US_ITS ---
CLINICAL HISTORY: N20.0 - Calculus of kidney US of kidneys Comparison: CT/SR - CT ABDOMEN PELVIS WO IV CON - 05/13/25 21:31 EDT Findings: Right kidney is normal in size, echogenicity and morphology, 10.0 cm in length. No calculus, mass or hydronephrosis. Left kidney is normal in size, echogenicity and morphology, 11.7 cm in length. No calculus, mass or hydronephrosis. Limited color Doppler demonstrates unremarkable bilateral blood flow. Impression: 1. Normal renal ultrasound. This document has been electronically signed by: Lizbeth Sullivan MD on 10/29/2025 14:49:23
--- OUTSIDE RECORDS SUMMARY | 2025-10-29 13:35 | XMS_ITS | Encounter Summary ---
Author Organization [employer] Address [address] [facility] 7[address] [place] [address] Care Team Providers Care Boot And Saddle Repair Person Name Role Phone Micaela Pena MD Primary Care Provider [phone] Encounter Details Date Type Department Care Team (Latest Contact Info) Description 03/03/2021 Abstract [facility] CONVERSIONS Dental, Provider, DDS Social History Tobacco Use Types Packs/Day Years Used Date Smoking Tobacco: Never Assessed Sex and Gender Information Value Date Recorded Sex Assigned at Male 09/13/2022 10:18 AM EDT Legal Sex Male 10:18 AM EDT Gender Identity Male 09/13/2022 10:18 AM EDT Sexual Orientation Straight 09/13/2022 10 :18 AM EDT documented as of this encounter Plan of Treatment Upcoming Encounters Date Type Department Care Team ( st Contact Info) Description 01/21/2026 8:45 AM EDT Office Visit [facility] CHC ADULT DENTAL [address] [place] [address] Adalid Denson documented as of this encounter Visit Diagnoses Not on filedocumented in this encounter Care Teams Boot And Saddle Repair Person Relationship Specialty Start Date End Date Micaela Pena MD [address] [place] [address] PCP - General Family Medicine 11/14/18 documented as of this encounter
--- OUTSIDE RECORDS SUMMARY | 2025-10-29 13:35 | XMS_ITS | Encounter Summary ---
Author Organization [employer] Address [address] [facility] 7[address] [place] [address] Care Team Providers Care Senior Bioinformatics Specialist Name Role Phone Micaela Pena MD Primary Care Provider [phone] Reason for Visit * Reason Onset Date Comments Medication Question 09/30/2023 Encounter Details Date Type Department Care Team ([facility] st Contact Info) Description 09/30/2023 Telephone [facility] CHC MED & PEDS [address] [place], [place] [phone] Micaela Pena MD [address] [place] [address] Medication Question Social History Tobacco Use Types Packs/Day Years Used Date Smoking Tobacco: Never Passive Smoke Exposure: Never Smokeless Tobacco: Never Alcohol Use Standard Drinks/Week Comments Never 0 (1 standard drink = 0.6 oz pur e alcohol) Depression Answer Date Recorded Patient Health Questionnaire-9 Score 20 12/14/2022 Housing Stability Answer Date Recorded What is your housing situation today? I have shashank back 09/12/[address] you li ve. Do you have problems with any of the following? None of the above 09/12/2023 Food Insecurity Answer Date Recorded Within the past 12 months, y ou worried that your food would run out before you got money to buy more: Never True 09/12/2023 Within the past 12 months,th e food you bought just didn't last and you didn't have enough money to get more: Never True Transportation Answer Date Recorded In the past 12 months, has l ack of transportation kept you from medical appts, meetings, work or from getting things needed for daily living? No 09/12/2023 Utilities Answer Date Recorded In the past 12 months, has t he electric, gas, oil or water company threatened to shut off services in your home? No 09/12/2023 Depression Answer Date Recorded Patient Health Questionnaire-2 Score 5 12/14/2022 Sex and Gender Information Value Date Recorded Sex Assigned at Male 09/13/2022 10:18 AM EDT Legal Sex Male 10:18 AM EDT Gender Identity Male 09/13/2022 10:18 AM EDT Sexual Orientation Straight 09/13/2022 10 :18 AM EDT documented as of this encounter Miscellaneous Notes * Telephone Encounter - Nguyen Renee RN - 09/30/2023 3:30 PM EST Noted called pt pharmacy and confirmed receipt * Telephone Encounter - Sary Ramirez - 09/30/2023 1:59 PM EST Tc from pt stating that [facility] advised that medication script for Semaglutide,0.25 or 0.5MG/DOS, (Ozempic, 0.25 or 0.5 MG/DOSE,) 2 MG/3ML solution pen-injector was written incorrectly. Please contact pt at [phone] documented in this encounter Plan of Treatment Upcoming Encounters Date Type Department Care Team (Late st Contact Info) Description 01/21/2026 8:45 AM EDT Office Visit [facility] ADULT DENTAL [address] [place] [address] Adalid Denson documented as of this encounter Visit Diagnoses Not on filedocumented in this encounter Additional Health Concerns Assessment Noted Time PHQ-9 Depression Total Score: 20 023 10:36 AM EST documented as of this encounter Care Teams Senior Bioinformatics Specialist Relationship Specialty Start Date End Date Micaela Pena MD [address] [place] [address] PCP - General Family Medicine 11/14/18 documented as of this encounter
--- OUTSIDE RECORDS SUMMARY | 2025-10-29 13:35 | XMS_ITS | Encounter Summary ---
Author Organization [facility] Address [address] [place] [address] Care Team Providers Care Foam Machine Operator Name Role Phone Micaela Pena Primary Care Provider [phone] Encounter Details Date Type Department Care Team ([facility] st Contact Info) Description 12/07/2022 Orders Only [facility] Gastroenterology [address] [place] [address] Agueda Harkins, DO [address] [place] [address] Social History Tobacco Use Types Packs/Day Years [...] on filedocumented in this encounter Care Teams Foam Machine Operator Relationship Specialty Start Date End Date Micaela Pena [address] [place] [address] PCP - General Internal Medicine 10/27/20 documented as of this encounter
--- OUTSIDE RECORDS SUMMARY | 2025-10-29 13:35 | XMS_ITS | Encounter Summary ---
Author Organization [employer] Address [address] [facility] 7t [place] [address] Care Team Providers Care Corset Maker Name Role Phone Micaela Pena MD Primary Care Provider [phone] Encounter Details Date Type Department Care Team ([facility] st Contact Info) Description 05/23/2025 Orders Only [facility] [address] [place] [address] Provider, MD Brad Social History Tobacco Use Types Packs/Day Years Used Date Smoking Tobacco: Former Cigarettes Passive Smoke Exposure: Never Smokeless Tobacco: Never Alcohol Use Standard Drinks/Week Comments Never 0 (1 standard drink = 0.6 oz pur e alcohol) Depression Answer Date Recorded Patient Health Questionnaire-9 Score 22 03/28/2025 Patient Health Questionnaire-9 Score 22 03/28/2025 Last PHQ-9: Questionnaire Data Not on file 0 03/28/2025 Housing Stability Answer Date Recorded What is your housing situation today? I do not have housing (Staying with others, in a hotel, in a half-way, living outside on the street, on a beach, in a car, or in a park 03/28/[address] you li ve. Do you have problems with any of the following? Pests such as bugs, ants, or mice;Mold;Water leaks 03/28/2025 Food Insecurity Answer Date Recorded Within the [...] to shut off services in your home? Yes 03/28/2025 Depression Answer Date Recorded Patient Health Questionnaire-2 Score 5 03/28/2025 Internet Access Answer Date Recorded Internet Access [...] Upcoming Encounters Date Type Department Care Team ([facility] st Contact Info) Description 01/21/2026 8:45 AM EDT Office Visit [facility] ADULT DENTAL [address] [place] [address] Adalid Denson documented as of this encounter Procedures Procedure Name Priority Date/Time Associated Diagnosis Comments US LIVER ELASTOGRAPHY - FIBROSCAN Routine 04/30/2025 2:55 PM EDT documented in this encounter Results * US LIVER ELASTOGRAPHY - FIBROSCAN (04/30/2025 2:55 PM EDT) Anatomical Region Laterality Modality Ultrasound us Historical Provider MD SOW US PROCEDURES Final R esult documented in this encounter Visit Diagnoses Not on filedocumented in this encounter Additional Health Concerns Assessment Noted Time PHQ-9 Depression Total Score: 22 025 9:53 AM EDT documented as of this encounter Care Teams Corset Maker Relationship Specialty Start Date End Date Micaela Pena MD [address] [place] [address] PCP - General Family Medicine 11/14/18 documented as of this encounter
--- OUTSIDE RECORDS SUMMARY | 2025-10-29 13:35 | XMS_ITS | Encounter Summary ---
Author Organization [employer] Address [address] [facility] [address] [place] [address] Care Team Providers Care Gas Usage Meter Clerk Name Role Phone Micaela Pena MD Primary Care Provider [phone] Reason for Visit * Reason Onset Date Comments rs cancelled appt 01/08/2025 Encounter Details Date Type Department Care Team ([facility] st Contact Info) Description 01/08/2025 Telephone [facility] ADULT DENTAL [address] [place] [address] Fabiola Sandoval rs cancelled appt Social History Tobacco Use [...] Description 01/21/2026 8:45 AM EDT Office Visit [facility] ADULT DENTAL [address] [place] [address] Adalid Denson documented as of this encounter Visit Diagnoses Not on filedocumented in this encounter Additional Health Concerns Assessment Noted Time PHQ-9 Depression Total Score: 0 05/28/20 24 1:16 PM EDT documented as of this encounter Care Teams Gas Usage Meter Clerk Relationship Specialty Start Date End Date Micaela Pena MD [address] [place] [address] PCP - General Family Medicine 11/14/18 documented as of this encounter
--- OUTSIDE RECORDS SUMMARY | 2025-10-29 13:35 | XMS_ITS | Clinical Summary ---
Author Organization [employer] Address [address] [facility] [address] [place] [address] Care Team Providers Care Permit Review Assistant Name Role Phone Micaela Pena MD Primary Care Provider [phone] Medications * This document contains information received from the source organization and may not represent a complete record from that organization. Blood Glucose Monitoring Suppl (Placeword Verio) w/Device kit 1 kit 2 times daily. TEST BLOOD SUGARS TWICE A DAY 1 kit 3 Active hydrocortisone (Anusol-HC) 2.5 % rectal creamIndication s:Acute hemorrhoid Insert into the rectum 2 times daily. 28 g 3 4 Active albuterol 108 (90 Base) MCG/ACT inhaler Inhale 2 puffs every 4 (four) hours if needed for wheezing or shortness of breath. 18 g 1 4 Active Spacer/Aero-Hol ding Chambers (OptiChamber Sybil) misc 1 each every 4 (four) hours if needed (asthma). 1 each 4 Active acetaminophen (Tylenol) 500 MG tabletIndicatio ns:Pain Take 1-2 tablets (500-1,000 mg) by mouth every 8 (eight) hours if needed (pain or fever). 60 tablet 2 4 Active cyclobenzaprine (Flexeril) 10 MG tablet SMARTSI Tablet(s) By Mouth 3 Times Daily 4 Active fluticasone (Flonase) 50 MCG/ACT nasal spray INHALE 1 PUFF INTO EACH NOSTRIL EVERY DAY IN THE MORNING 16 mL 2 5 Active ibuprofen 400 MG tabletIndicatio ns:Pain TAKE 1 TABLET (400 MG) BY MOUTH EVERY 6 (SIX) HOURS IF NEEDED FOR MODERATE PAIN OR FEVER. 60 tablet 2 5 01/29/20 26 Active hydrOXYzine HCl (Atarax) 25 MG tablet TAKE 1 TABLET BY MOUTH 3 TIMES A DAY NEEDED FOR ITCHING 5 Active traZODone (Desyrel) 100 MG tablet Take 1 tablet (100 mg) by mouth at bedtime. 30 tablet 5 03/23/20 26 Active Ketotifen Fumarate 0.035 % solution Administer 1 drop into affected eye(s) Once per day. 10 mL 5 Active fluticasone (Flonase) 50 MCG/ACT nasal spray Administer 1-2 sprays into each nostril Once per day. 16 g 5 03/28/20 26 Active tamsulosin (Flomax) 0.4 MG 24 hr capsule Take 1 capsule (0.4 mg) by mouth Once per day. 7 capsule 5 Active Semaglutide, 2 MG/DOSE, (Ozempic, 2 MG/DOSE,) 8 MG/3ML solution pen-injectorInd ications:Diabet es mellitus type 2, noninsulin dependent (HCC) Inject 0.75 mL (2 mg) under the skin 1 (one) time per week. 3 mL 5 Active metroNIDAZOLE (Metrogel) 0.75 % gel APPLY TO AFFECTED AREA TWICE A DAY 45 g 5 Active pyridoxine (Vitamin B-6) 50 MG tablet Take 1 tablet by mouth Once per day. 5 Active triamcinolone (Kenalog) 0.1 % ointment Apply topically 2 times daily. 80 g 1 5 Active ketoconazole (NIZOral) 2 % shampoo Apply topically 2 (two) times a week. 120 mL 5 Active glucose blood ([employer]Touch Verio) test stripIndication s:Diabetes mellitus type 2, noninsulin dependent (HCC) USE TO TEST BLOOD SUGAR TWICE A DAY 100 strip 5 Active Lancets ([employer]Touch Delica Plus [id number]) miscIndications :Diabetes mellitus type 2, noninsulin dependent (HCC) TEST BLOOD SUGAR 2 TIMES A DAY 100 each 11 5 Active cholecalciferol (Vitamin D-3) 50 MCG (1999 UT) capsule Take 1 capsule (50 mcg) by mouth Once per day. 90 capsule 3 5 Active Sodium Fluoride 1.1 % creamIndication s:Dental caries [place] teeth for 2 minutes, morning and night. Spit, do not rinse. Do not eat or drink anything for 30 minutes following use. 112 g 3 5 Active escitalopram (Lexapro) 10 MG tablet TAKE 1 TABLET BY MOUTH EVERY DAY IN THE MORNING 30 tablet 5 5 Active Active Problems Problem Noted Date Diagnosed Date Calculus of kidney and ureter 05/23/2025 Class 2 obesity 12/14/2022 Type 2 diabetes mellitus with obesity 11/21/2020 Assessment & Plan (05/29/2024 5:12 PM EDT): Lab Results Component Value Date HGBA1C 6.7 (H) 02/22/2024 -Continue with Ozempic 0.5mg subcutaneous weekly -Repeat A1c ordered -Encouraged lifestyle interventions Chronic hepatitis C without hepatic coma 014 Assessment & Plan (05/29/2024 5:14 PM EDT): History of Hep C previously tx with Vosevi Repeat Hep C lab ordered to confirm tx success and no re-infection Depressive disorder 06/24/2014 Assessment & Plan (05/29/2024 5:13 PM EDT): Patient Health Questionnaire-9 Score: 0 (05/28/2024 1:16 PM) Patient Health Questionnaire-2 Score: 0 (05/28/2024 1:16 PM) -Following with therapist weekly -Continues with Lexapro 10mg daily -Well controlled Rosacea 06/24/2014 Encounters * This document contains information received from the source organization and may not represent a complete record from that organization. Date Type Department Care Team Description 08/19/[address] [facility] [address] [place] [address] Micaela Pena MD 08/14/2025 11:00 AM EDT Office Visit [facility] ADULT DENTAL [address] [place] [address] Robbin Colvin from Last 3 Months Immunizations Immunization Administration Dates Next Due Hep B, adult 04/10/2019,07/21/2018,06/19/2018 Influenza injectable quadriv alent preservative free 09/23/2023 Pneumococcal Polysaccharide PPSV23 02/21/2008 Td (adult), 5 Lf tetanus tox oid, preservative free, adsorbed 03/20/2008 Tdap 04/12/2018 Family History Medical History Relation Name Comments Diabetes Father Hypertension Father history of amputation Father Hypertension Mother Relation Name Status Comments Father Mother Social History Tobacco Use Types Packs/Day Years Used Date Smoking Tobacco: Former Cigarettes Passive Smoke Exposure: Never Smokeless Tobacco: Never Tobacco Cessation:Counseling Given: Not Answered Alcohol Use Standard Drinks/Week Comments Never 0 (1 standard drink = 0.6 oz pur e alcohol) Depression Answer Date Recorded Patient Health Questionnaire-9 Score 7 07/02/2025 Patient Health Questionnaire-9 Score 7 07/02/2025 Last PHQ-9: Questionnaire Data Not on file 0 07/02/2025 Housing Stability Answer Date Recorded What is your housing situation today? I do not have housing (Staying with others, in a hotel, in a long term, living outside on the street, on a [...] Answer Date Recorded Patient Health Questionnaire-2 Score 2 07/02/2025 Internet Access Answer Date Recorded Internet Access Q1 Yes 07/16/2024 Internet Access Q2 Not on file 07/16/2024 Sex and Gender Information Value Date Recorded Sex Assigned at Male 09/13/2022 10:18 AM EDT Legal Sex Male 10:18 AM EDT Gender Identity Male 09/13/2022 10:18 AM EDT Sexual Orientation Straight 09/13/2022 10 :18 AM EDT Last Filed Vital Signs Vital Sign Reading Time Taken Comments Blood Pressure 130/70 08/14/2025 11:04 AM EDT Pulse 77 07/23/2025 8:53 AM EDT Temperature 37.3 C (99.2 F) 07/02/2025 9:09 AM EDT Respiratory Rate 16 07/02/2025 9:09 AM EDT Oxygen Saturation 98% 03/28/2025 9:22 AM EDT Inhaled Oxygen Concentration - - Weight 93 kg (205 lb) 07/02/2025 9:09 AM EDT Height 164.5 cm (5' 4.75 ) 07/02/2025 9:09 AM ED T Body Mass Index 34.38 07/02/2025 9:09 AM EDT Plan of Treatment Upcoming Encounters Date Type Department Care Team (Late st Contact Info) Description 01/21/2026 8:45 AM EDT Office Visit [facility] ADULT D[facility] [address] [place] [phone] Adalid Denson Health Maintenance Due Date Last Done Comments CT Colonography 1979 Colonoscopy 1979 FIT 1979 Sigmoidoscopy 1979 Eye Exam 1989 Family Planning (PISQ) 1994 Hepatitis A Vaccines (1 of 2 - Risk 2-dose series) 1998 Pneumococcal Vaccine: Pediatrics (0 to 5 Years) and At-Risk Patients (6 to 49) Years (2 of 2 - PCV) 02/20/2009 02/21/2008 COVID-19 Vaccine ( season) 2025 03/20/2021, 02/19/2021 Influenza Vaccine (#1) 2025 3, 09/06/2022, 10/29/2021, Additional history exists Dental X-Ray: Bitewings 09/18/2025 09/17/2024, 02/23 Diabetes: Hemoglobin A1C 01/02/2026 025, 03/28/2025, 06/27/2024, Additional history exists Dental Oral Exam 01/21/2026 07/23/2025, 02/2024, 02/23/2021 Dental Prophylaxis 01/21/2026 07/23/2025, 1 11/17/2023, 04/29/2022, Additional history exists Alcohol/Substance Use Screening 03/28/2026 03/28/2025 SDOH Screening 03/28/2026 03/28/2025 FOBT 04/09/2026 04/09/2025 Disability Screening 05/16/2026 05/16/2025 Depression Screening 07/02/2026 07/02/2025, 07/02/20 25 Diabetes: Foot Exam 07/02/2026 07/02/2025, 07/02/2025, 07/02/2025, Additional history exists Diabetes: Urine Protein Screening 07/02/2026 07/02/2025, 06/27/2024 Lipid Panel 07/02/2026 07/02/2025, 06/14, 09/14/2022, Additional history exists Tobacco Screening 08/14/2026 08/14/2025 Colorectal Cancer Screening 04/09/2028 FIT DNA/Cologuard 04/09/2028 04/09/2025 DTaP/Tdap/Td Vaccines (2 - Td or Tdap) 04/12/2028 04/12/2018, 03/20/2008 Dental X-Ray: Full Mouth 08/15/2028 025, 09/17/2024, 02/23/2021 Zoster Vaccines (1 of 2) 2029 RSV Patients and Patients Aged 60 years or older (1 - 1-dose 75+ series) 2054 Hepatitis B Vaccines Completed 04/10/2019, 07/21/2018, 06/19/2018 HIV Screening Completed 06/27/2024 HIB Vaccines Aged Out No longer eligi ble based on patient's age to complete this topic HPV Vaccines Aged Out No longer eligi ble based on patient's age to complete this topic IPV Vaccines Aged Out No longer eligi ble based on patient's age to complete this topic Meningococcal B Vaccine Aged Out No l onger eligible based on patient's age to complete this topic Meningococcal Vaccine Aged Out No madhavi carol eligible based on patient's age to complete this topic RSV under 20 months Aged Out No longe r eligible based on patient's age to complete this topic Rotavirus Vaccines Aged Out No longer eligible based on patient's age to complete this topic Procedures Procedure Name Priority Date/Time Associated Diagnosis Comments PANORAMIC RADIOGRAPHIC IMAGE Routine 08/14/2025 11:00 AM EDT CONSULTATION - DIAGNOSTIC SERVICE PROVIDED BY DENTIST OR PHYSICIAN OTHER THAN REQUESTING DENTIST OR PHYSICIAN Routine 08/14/2025 11:00 AM EDT PROPHYLAXIS - ADULT Routine 07/23/2025 9 :00 AM EDT Dental caries PERIODIC ORAL EVALUATION - ESTABLISHED PATIENT Routine 07/23/2025 9:00 AM EDT Dental caries ALBUMIN, RANDOM URINE W/CREATININE Routine 07/02/2025 9:40 AM EDT Diabetes mellitus type 2, noninsulin dependent (CMS/HCC) Depressive disorder HEMOGLOBIN A1C Routine 07/02/2025 9:39 AM EDT Diabetes mellitus type 2, noninsulin dependent (CMS/HCC) Depressive disorder LIPID PANEL, STANDARD Routine 07/02/2025 9:39 AM EDT Diabetes mellitus type 2, noninsulin dependent (CMS/HCC) Depressive disorder LAB COLOGUARD COLON CANCER SCREEN Routine 04/09/2025 10:35 AM EDT Screening for colon cancer INTRAORAL - COMPLETE SERIES OF RADIOGRAPHIC IMAGES Routine 09/17/2024 11:00 AM EST HIV 1/2 ANTIGEN/ANTIBODY, FOURTH GENERATION W/RFL Routine 06/27/2024 10:05 AM EDT Encounter for routine history and physical examination of adult from Last 3 Months or Most Recently Relevant to Health Maintenance Results * Albumin, Random Urine W/Creatinine (07/02/2025 9:40 AM EDT) Creatinine, Urine 182.01 mg/dL [facility] Microalbumin Urine 6.0 mg/L [facility] Microalbum Creatinine Ratio Ur 3.2 <30 ug/mg cr [facility] Comment:Albumin/Creatinine R atio Reference Ranges: Normal: < 30 ug/mg creatinine Microalbuminuria: 30 - 300 ug/mg creatinineClinical Albuminuria: > 300 ug/mg creatinine Urine (Urine, Random) 07/02/2025 9:40 AM EDT 07/02/2025 1:58 PM EDT Micaela Pena MD LAB URINE ORDERABLES Final Re sult Performing Organization Address [facility] Co de Phone Number [facility] [address] [place] [phone] * Hemoglobin A1c (07/02/2025 9:39 AM EDT) Hemoglobin A1c 5.3 <6.0 % [facility] Comment:Hemoglobin A1C Refer ence Range Adults: 4.8 - 6.0 % Non diabetic: < 6.0 % Goal: < 7.0 %Additional Action Suggested: > 8.0 %Note: Hemoglobin A1c results are invalid for patients with abnormal amounts of HbF. Blood transfusions may impact the HbA1c concentration in the patient sample. Estimated Average Glucose 105 mg/dL [facility] Comment:eAG = Estimated ave rage glucose which is %A1C expressed asaverage glucose, using the formula of the P3Y-EpoglvgNpoqntq Glucose study (ADAG), Diabetes Care, Vol.31,#8,Jun. 2007 Blood Venous blood specimen / Unknown 07/02/2025 9:39 AM EDT 07/02/2025 1:55 PM EDT us Micaela Pena MD LAB BLOOD ORDERABLES Final Re sult Performing Organization Address [facility] Co de Phone Number [facility] [address] [place] [phone] * Lipid Panel, Standard (07/02/2025 9:39 AM EDT) Triglycerides 73 <150 mg/dL [facility] Comment:Desirable Triglyceri de: less than 150 mg/dLBorderline High Triglyceride 150-199 mg/dLHigh Triglyceride: 200-499 mg/dLVery High Triglyceride: greater than or equal to 5OO mg/dL Cholesterol 137 <200 mg/dL [facility] Comment:Desirable Cholestero l: less than 200 mg/dLBorderline High Cholesterol: 200-239 mg/dLHigh Cholesterol: greater than 239 mg/dL LDL Cholesterol Calculated 81 <100 mg/dL [facility] Comment:Desirable LDL: less than 100 mg/dLNear Optimal/Above Optimal LDL: 110- 129 mg/dLBorderline High LDL: 130-159 mg/dLHigh LDL: 160-189 mg/dLVery High LDL: greater than or equal to 190 mg/dL HDL Cholesterol 42 >40 mg/dL [facility] Comment:Desirable HDL: great er than 40 mg/dL Note: This HDL assay may give artificially low results in patients with liver disease. Blood Venous blood specimen / Unknown 07/02/2025 9:39 AM EDT 07/02/2025 1:55 PM EDT us Micaela Pena MD LAB BLOOD ORDERABLES Final Re sult [facility] [address] [place] [phone] * Cologuard?? colon cancer screening (04/09/2025 10:35 AM EDT) Cologuard Result Negative Negative 04/12/20 12:46 PM EDT [facility] (CLIA #:[id number]) Comment: The Cologuard (TM) test was performed on this specimen. NEGATIVE TEST RESULT. A negative Cologuard result indicates a low likelihood that a colorectal cancer (CRC) or advanced adenoma (adenomatous polyps with more advanced pre-malignant features) is present. The chance that a person with a negative Cologuard test has a colorectal cancer is less than 1 in 1500 (negative predictive value >99.9%) or has an advanced adenoma is less than 5.3% (negative predictive value 94.7%). These data are based on a prospective cross-sectional study of 10,000 individuals at average risk for colorectal cancer who were screened with both Cologuard and colonoscopy. (Finn Dukes al, N Engl J Med 2014;370(14):1286- 1297) The normal value (reference range) for this assay is negative. COLOGUARD RE-SCREENING RECOMMENDATION: Periodic colorectal cancer screening is an important part of preventive healthcare for asymptomatic individuals at average risk for colorectal cancer. Following a negative Cologuard result, the [employer] [employer] Society and U.S. Multi-Society Task Force screening guidelines recommend a Cologuard re-screening interval of 3 years. References: [employer] [employer] Guideline for Colorectal Cancer Screening: https://www.cancer.org/cancer/rovke-yinedj-dpnrsa/yxajdcyoq-zzfpgwydo-wesnaoz/ac s-rec ommendations.html.; Sebas DK, Darrion ERICKSON, Carlyle ShiK, Colorectal Cancer Screening: Recommendations for Physicians and Patients from the U.S. Multi-Society Task Force on Colorectal Cancer Screening , Am J Gastroenterology 2017; 112:2536-6041. TEST DESCRIPTION: Composite algorithmic analysis of stool DNA-biomarkers with hemoglobin immunoassay. Quantitative values of individual biomarkers are not reportable and are not associated with individual biomarker result reference ranges. Cologuard is intended for colorectal cancer screening of adults of either sex, 45 years or older, who are at average-risk for colorectal cancer (CRC). Cologuard has been approved for use by the U.S. FDA. The performance of Cologuard was established in a cross sectional study of average-risk adults aged 50-84. Cologuard performance in patients ages 45 to 49 years was estimated by sub-group analysis of near-age groups. Colonoscopies performed for a positive result may find as the most clinically significant lesion: colorectal cancer [4.0%], advanced adenoma (including sessile serrated polyps greater than or equal to 1cm diameter) [20%] or non- advanced adenoma [31%]; or no colorectal neoplasia [45%]. These estimates are derived from a prospective cross-sectional screening study of 10,000 individuals at average risk for colorectal cancer who were screened with both Cologuard and colonoscopy. (Finn Treviño et al, N Engl J Med 2014;370(14):6444-6140.) Cologuard may produce a false negative or false positive result (no colorectal cancer or precancerous polyp present at colonoscopy follow up). A negative Cologuard test result does not guarantee the absence of CRC or advanced adenoma (pre-cancer). The current Cologuard screening interval is every 3 years. ([employer] [employer] Society and U.S. Multi-Society Task Force). Cologuard performance data in a 10,000 patient pivotal study using colonoscopy as the reference method can be accessed at the following location: www.[employer]/results. Additional description of the Cologuard test process, warnings and precautions can be found at www.[address]. Stool specimen (specimen) 04/09/2025 10:35 AM EDT 04/10/2025 10:44 AM EDT us Micaela Pena MD LAB MOLECULAR DIAGNOSTICS ORD ERABLES Final Result [facility] (CLIA #:[id number]) [address] [place] [address], * HIV-1/2 Antigen and Antibodies, Fourth Generation, with Reflexes (06/27/2024 10:05 AM EDT) HIV AB/AG Nonreactive Nonreactive [facility] Comment:HIV-1 p24 Ag and/or HIV-1/HIV-2 Ab not detected.A test result that is nonreactive does not exclude thepossibility of exposure to or infection with HIV-1 and/orHIV-2. Nonreactive results in this assay for individualswith prior exposure to HIV-1 and/or HIV-2 may be due toantigen and antibody levels that are below the limit ofdetection of this assay.The [employer] HIV Ag/Ab Combo assay result andsupplemental assay results should be interpreted inconjunction with the patient's clinical presentation,history and other laboratory results. If the results areinconsistent with clinical evidence, additional testing issuggested to confirm the result. Blood Venous blood specimen / Unknown 06/27/2024 10:05 AM EDT 06/27/2024 2:20 PM EDT us Lynda Wagner CHARGE AUDITOR LAB BLOOD ORDERABLES Final Res ult [facility] [address] [place] [phone] from Last 3 Months or Most Recently Relevant to Health Maintenance Insurance [facility] < 65 [facility] Care Teams Permit Review Assistant Relationship Specialty Start Date End Date Micaela Pena MD [address] [place] [phone] PCP - General Family Medicine 11/14/18
--- OUTSIDE RECORDS SUMMARY | 2025-10-29 13:35 | XMS_ITS | Encounter Summary ---
Author Organization [employer] Address [address] [facility] [address] [place] [address] Care Team Providers Care Manager Monitoring Name Role Phone Micaela Pena MD Primary Care Provider [phone] Encounter Details Date Type Department Care Team (Latest Contact Info) Description 02/23/2021 Abstract [facility] CONVERSIONS Dental, Provider, DDS Social History Tobacco [...] Description 01/21/2026 8:45 AM EDT Office Visit [facility]ULT D[facility]AL [address] [place] [address] Adalid Denson documented as of this encounter Visit Diagnoses Not on filedocumented in this encounter Care Teams Manager Monitoring Relationship Specialty Start Date End Date Micaela Pena MD [address] [place] [address] PCP - General Family Medicine 11/14/18 documented as of this encounter
--- OUTSIDE RECORDS SUMMARY | 2025-10-29 13:35 | XMS_ITS | Encounter Summary ---
Author Organization [employer] Address [address] [place] [address] [address] [place] [address] Care Team Providers Care Smelter Operator Name Role Phone Miacela Pena MD Primary Care Provider [phone] Reason for Visit * Reason Comments Med Refill Encounter Details Date Type Department Care Team (Late st Contact Info) Description 07/06/2023 Refill [facility] P[facility] [address] [place] [address] Micaela Pena MD [address] [place] [address] Social History Tobacco Use Types Packs/Day Years Used Date Smoking Tobacco: Never Passive Smoke Exposure: Never Smokeless Tobacco: Never Alcohol Use Standard Drinks/Week Comments Never 0 (1 standard drink = 0.6 oz pur e alcohol) Depression Answer Date Recorded Patient Health Questionnaire-9 Score 20 12/14/2022 Depression Answer Date Recorded Patient Health Questionnaire-2 [...] 8:45 AM EDT Office Visit [facility] ADULT DENTAL [address] [place] [address] Adalid Denson documented as of this encounter Visit Diagnoses Not on filedocumented in this encounter Additional Health Concerns Assessment Noted Time PHQ-9 Depression Total Score: 20 023 10:36 AM EST documented as of this encounter Care Teams Smelter Operator Relationship Specialty Start Date End Date Micaela Pena MD [address] [place] [address] PCP - General Family Medicine 11/14/18 documented as of this encounter
--- OUTSIDE RECORDS SUMMARY | 2025-10-29 13:35 | XMS_ITS | Encounter Summary ---
Author Organization [employer] Address [address] [facility] [address] [place] [address] Care Team Providers Care Process Control Programmer Name Role Phone Micaela Pena MD Primary Care Provider [phone] Reason for Visit * Reason Comments Med Change Request Encounter Details Date Type Department Care Team ([facility] Contact Info) Description 09/27/2023 Refill [facility] [address] [place], [place] [phone] Micaela Pena MD [address] [place] [address] Social History Tobacco Use Types Packs/Day Years [...] Description 01/21/2026 8:45 AM EDT Office Visit [facility] ADULT DENTAL [address] [place] [address] Adalid Denson documented as of this encounter Visit Diagnoses Not on filedocumented in this encounter Additional Health Concerns Assessment Noted Time PHQ-9 Depression Total Score: 20 023 10:36 AM EST documented as of this encounter Care Teams Process Control Programmer Relationship Specialty Start Date End Date Micaela Pena MD [address] [place] [address] PCP - General Family Medicine 11/14/18 documented as of this encounter
--- OUTSIDE RECORDS SUMMARY | 2025-10-29 13:35 | XMS_ITS | Encounter Summary ---
Author Organization [employer] Address [address] [facility] [address] [place] [address] Care Team Providers Care Dyeing Machine Feeder Name Role Phone Micaela Pena MD Primary Care Provider [phone] Reason for Visit * Reason Onset Date Comments Med Refill 05/15/2025 Encounter Details Date Type Department Care Team ([facility] st Contact Info) Description 05/15/2025 Telephone [facility] [address] [place] [address] Micaela Pena MD [address] [place] [address] Med Refill Social History Tobacco Use Types Packs/Day Years [...] with others, in a hotel, in a assisted, living outside on the street, on a [...] encounter Miscellaneous Notes * Telephone Encounter - Sharon Lott LPN - 05/15/2025 3:43 PM EDT Medication pended to PCP for approval. * Telephone Encounter - Azucena Fine - 05/15/2025 3:41 PM EDT TC from pt requesting medication refill. Medications needing refill : Lancets (OneTouch Delica Plus [id number]) [facility] To be sent to: [facility]/pharmacy #[id number] [place], [place] - [address] [place] [address] documented in this encounter Plan of Treatment Upcoming Encounters Date Type Department Care Team (Late st Contact Info) Description 01/21/2026 8:45 AM EDT Office Visit [facility] [address] [place] [address] Adalid Denson documented as of this encounter Visit Diagnoses Not on filedocumented in this encounter Additional Health Concerns Assessment Noted Time PHQ-9 Depression Total Score: 22 025 9:53 AM EDT documented as of this encounter Care Teams Dyeing Machine Feeder Relationship Specialty Start Date End Date Micaela Pena MD [address] [place] [address] PCP - General Family Medicine 11/14/18 documented as of this encounter
--- OUTSIDE RECORDS SUMMARY | 2025-10-29 13:35 | XMS_ITS | Clinical Summary ---
Author Organization [facility] Address [address] [place] [address] Care Team Providers Care Waste Disposal Leakage Tester Name Role Phone Micaela Pena Primary Care Provider Allergies No known active allergies Medications ibuprofen (MOTRIN) 600 mg tablet Take 600 mg by mouth every 8 hours as needed for pain, fever or headache. 0 Active albuterol (PROAIR HFA,VENTOLIN HFA) 90 mcg inhaler Inhale 2 puffs by mouth every 4 hours as needed. 2 Active ergocalciferol (VITAMIN D2) 1,250 mcg (50,000 unit) capsule Take 1 capsule by mouth every 7 days. 2 Active blood pressure test kit-large kit USE TO CHECK BLOOD PRESSURE TWICE DAILY 4 Active OneTouch Verio test strips USE TO TEST BLOOD SUGAR TWICE A DAY 4 Active fluticasone propionate (FLONASE) 50 mcg/actuation nasal spray SPRAY 1 SPRAY IN EACH NOSTRIL IN AM.SHAKE GENTLY BEFORE FIRST USE,PRIME PUMP AFTER USE,CLEAN TIP & REPLACE CAP 4 Active hydrocortisone (ANUSOL-HC) 2.5% rectal cream Insert into the rectum 2 times daily. 4 Active Ozempic 1 mg/dose (4 mg/3 mL) pen injector SMARTSI Milligram(s) SUB-Q Once a Week Active traZODone (DESYREL) 50 mg tablet SMARTSI Tablet(s) By Mouth Every Night Active gabapentin (NEURONTIN) 300 mg capsule TAKE 1 CAPSULE BY MOUTH EVERY DAY AT BEDTIME NEEDED FOR PAIN 4 Active escitalopram (LEXAPRO) 10 mg tablet SMARTSI Tablet(s) By Mouth Every Morning Active metroNIDAZOLE (METROGEL) 0.75% topical gel Apply topically to the affected area 2 times a day. Apply to affected area 5 Active hydrOXYzine HCL (ATARAX) 25 mg tablet TAKE 1 TABLET BY MOUTH 3 TIMES A DAY NEEDED FOR ITCHING 90 tablet 5 Active Active Problems Problem Noted Date Diagnosed Date Other fatigue 12/12/2024 Type 2 diabetes mellitus wit hout complication, without long-term current use of insulin 07/17/2024 Chronic hepatitis C without hepatic coma 021 Resolved Problems Problem Noted Date Diagnosed Date Resolved Date Tobacco abuse 11/21/2020 07/17/2024 Prediabetes 11/21/2020 07/17/2024 Social History Tobacco Use Types Packs/Day Years Used Date Smoking Tobacco: Former Cigarettes Smokeless Tobacco: Never Tobacco Cessation:Counseling Given: Not Answered Alcohol Use Standard Drinks/Week Comments Not Currently 0 (1 standard drink = 0.6 oz pur e alcohol) Sex and Gender Information Value Date Recorded Sex Assigned at Male 07/16/2024 8:28 PM EDT Legal Sex Male 12:01 PM EST Gender Identity Male 07/16/2024 8:28 PM EDT Sexual Orientation Straight 07/16/2024 8: 28 PM EDT Last Filed Vital Signs Vital Sign Reading Time Taken Comments Blood Pressure 138/79 01/25/2025 12:24 PM EDT Pulse 100 01/25/2025 12:24 PM EDT Temperature 36.8 C (98.2 F) 01/25/2025 12:24 PM EDT Respiratory Rate 18 12/12/2024 1:35 PM EST Oxygen Saturation 100% 01/25/2025 12: 24 PM EDT Inhaled Oxygen Concentration - - Weight 96.1 kg (211 lb 13.8 oz) 025 12:45 PM EDT Height 165.1 cm (5' 5 ) 12/12/2024 1:35 PM EST Body Mass Index 35.26 12/12/2024 1:35 PM EST Plan of Treatment Health Maintenance Due Date Last Done Comments Colonoscopy 1979 Sigmoidoscopy 1979 Ophthalmology Exam 1989 Urine Microalbumin 1989 Hepatitis B Vaccines (1 of 3 - 19+ 3-dose series) 1998 Pneumococcal Vaccine: Pediat chiara (0-5 Years) and At-Risk Patients (6-50 Years) (2 of 2 - PCV) 02/20/2009 02/21/2008 Depression Screening and Follow-Up 11/14/2024 Social Drivers of Health Diana ual Screening 11/14/2024 Influenza Vaccine (#1) 2025 , 09/06/2022, 10/29/2021, Additional history exists FOBT / Fit Test 06/27/2025 06/27/2024 COVID-19 Vaccine (3 - 2024-2 6 season) 2025 03/20/2021, 02/19/2021 Hemoglobin A1C 09/28/2025 03/28/2025, 06/26/2024 Basic Metabolic Panel 04/30/2026 04/30/2025 , 12/12/2024, 10/30/2024, Additional history exists Cologuard 04/09/2028 04/09/2025, 04/09/2025 Colon Cancer Screening 04/09/2028 DTaP,Tdap,and Td Vaccines (2 - Td or Tdap) 04/12/2028 04/12/2018, 03/20/2008 HIV Screening Completed 06/27/2024, 06/14, 09/29/2022, Additional history exists Alcohol/Substance Use Screening Completed Procedures * Due to [place] [employer] law, this organization might not be sharing negative HIV tests. Procedure Name Priority Date/Time Associated Diagnosis Comments COMPREHENSIVE METABOLIC PANEL Routine 04/30/2025 1:26 PM EDT Chronic hepatitis C without hepatic coma (HCC) from Last 3 Months or Most Recently Relevant to Health Maintenance Results * Due to [place] [employer] law, this organization might not be sharing negative HIV tests. * (ABNORMAL) Comprehensive Metabolic Panel (04/30/2025 1:26 PM EDT) NA 140 135 - 145 mmol/L 04/30/2025 2:39 PM EDT [facility] K 4.3 3.5 - 5.3 mmol/L 04/30/2025 2:39 PM EDT [facility] Cl 105 98 - 107 mmol/L 04/30/2025 2:39 PM EDT [facility] CO2 22 22 - 32 mmol/L 04/30/2025 2:39 PM EDT [facility] Anion Gap 13 5 - 15 04/30/2025 2:39 PM EDT [facility] Glucose 116(H) 65 - 99 mg/dL 04/30/2025 2:39 PM EDT [facility] Creatinine 1.07 0.60 - 1.30 mg/dL 04/30/2025 2:39 PM EDT [facility] Calcium 9.5 8.6 - 10.5 mg/dL 04/30/2025 2:39 PM EDT [facility] Total Protein 7.7 6.0 - 8.0 g/dL 04/30/2025 2:39 PM EDT [facility] Albumin 4.6 3.5 - 5.2 g/dL 04/30/2025 2:39 PM EDT [facility] Bilirubin, Total 1.9(H) 0.2 - 1.2 mg/dL 04/30/2025 2:39 PM EDT [facility] Alkaline Phosphatase 72 35 - 129 U/L 04/30/2025 2:39 PM EDT [facility] AST 27 10 - 40 U/L 04/30/2025 2:39 PM EDT [facility] ALT 21 10 - 40 U/L 04/30/2025 2:39 PM EDT [facility] BUN 14 7 - 23 mg/dL 04/30/2025 2:39 PM EDT [facility] eGFR 87 >=60 mL/min/1. 73m2 04/30/2025 2:39 PM EDT [facility] Comment:The estimated glomer ular filtration rate (eGFR) is calculated using a new formula developed by the NKF-ASN task force to eliminate race-based correction factors. The new formula uses serum/plasma creatinine, age, and gender to determine eGFR. A value below 60mls/min might indicate kidney disease and will be flagged. For additional information, see Roxy et al, Am J Kidney Dis. 2021;79(2):268- 288, A Unifying Approach for GFR estimation: Recommendations of the NKF-ASN Task Force on Reassessing the Inclusion of Race in Diagnosing Kidney Disease . Globulin, Total 3.1 2.1 - 4.2 g/dL 04/30/2025 2:39 PM EDT [facility]ITALFraud[facility] TechnologiesBRE[facility] A/G Ratio 1.5 1.5 - 3.0 04/30/2025 2:39 PM EDT [facility] Blood Structure of peripheral vein / Unknown Venipuncture / Unknown 04/30/2025 1:26 PM EDT 04/30/2025 2:09 PM EDT us Agueda Harkins DO LAB BLOOD ORDERABLES Final Re sult [facility] [address] [place] [address], from Last 3 Months or Most Recently Relevant to Health Maintenance Insurance [facility] [employer] Care Teams Waste Disposal Leakage Tester Relationship Specialty Start Date End Date Micaela Pena [address] [place] [id number] PCP - General Internal Medicine 10/27/20
--- OUTSIDE RECORDS SUMMARY | 2025-10-29 13:35 | XMS_ITS | Encounter Summary ---
Author Organization [employer] Address [address] [facility] [address] [place] [address] Care Team Providers Care Skilled Labor Name Role Phone Micaela Pena MD Primary Care Provider [phone] Reason for Visit * Reason Comments Med Refill Encounter Details Date Type Department Care Team ([facility] st Contact Info) Description 07/19/2024 Refill [facility] [address] [place], [place] [id number] Micaela Pena MD [address] [place] [address] Diabetes mellitus type 2, noninsulin dependent (CMS/HCC) Social History Tobacco Use Types Packs/Day Years [...] Upcoming Encounters Date Type Department Care Team ([facility] st Contact Info) Description 01/21/2026 8:45 AM EDT Office Visit [facility] [address] [place] [address] Adalid Denson documented as of this encounter Visit Diagnoses Diagnosis Diabetes mellitus type 2, noninsulin dependent (HCC) documented in this encounter Additional Health Concerns Assessment Noted Time PHQ-9 Depression Total Score: 0 05/28/20 24 1:16 PM EDT documented as of this encounter Care Teams Skilled Labor Relationship Specialty Start Date End Date Micaela Pena MD [address] [place] [address] PCP - General Family Medicine 11/14/18 documented as of this encounter
== END 2025-10-29 10:41 | disposition home or self-care (01) ==
LOC: HO.US 10:40
PROVIDERS: PCP Pediatrics; Visit Provider Urology
DX: N20.0 Calculus of kidney (principal)
CPT/HCPCS: 76775

== ENCOUNTER → 2025-10-29 10:42 | Outpatient (BNV) | payer OTHER, SELFPAY | PROVIDERS: PCP Pediatrics; Visit Provider Radiology Diagnostic Radiology | DX: N20.0 Calculus of kidney (principal) | CPT/HCPCS: 76775 ==